=== PATIENT | male | born 1950 | race Caucasian/White ===

== ENCOUNTER 2016-12-05 15:01 | Inpatient (IN) ==
[2016-12-05] MEDS ORDERED: ONDANSETRON 4 MG/2 ML VIAL IV PRN (15:43)
[2016-12-05] MEDS ORDERED: GLUCAGON 1 MG VIAL IM PRN (15:43)
[2016-12-05] MEDS ORDERED: DEXTROSE 50% 25 GM/50 ML VIAL IV PRN (15:43)
[2016-12-05 17:00] LABS: Basophils % 0.2 % (0.0-0.8); Eosinophils % 0.1 % (0.00-10.9); Hematocrit 32.2 VOL% (42.0-52.0); Hemoglobin 10.9 GM/DL (14.0-18.0); Immature Granulocytes % 0.6 %; Immature Granulocytes Absolute 0.08 #; Lymphocytes # 0.7 10*3/uL (1.4-4.0); Lymphocytes % 5.3 % (21.2-54.2); Mean Corpuscular HGB Conc 33.9 GM/DL (32-36); Mean Corpuscular Hemoglobin 33 PG (27-34); Mean Platelet Volume 12.1 FL (9.6-12.0); Monocytes # 0.4 10*3/uL (0.11-0.8); Monocytes % 2.8 % (1.7-12.7); Neutrophils # 11.8 10*3/uL (1.4-7.4); Platelet Count 237 T/CUMM (130-400); Red Blood Count 3.32 MC/CUMM (3.8-5.5); Red Cell Distribution Width 14.3 % (9.3-17.3)
[2016-12-05 17:26] LABS: Calcium 8.4 MG/DL (8.5-10.1); Osmolality,Calculated 297.4 MOS/KG (273-304); Potassium 4.4 MMOL/L (3.5-5.1)
[2016-12-05] MEDS ORDERED: traMADol 50 MG TABLET PO PRN (17:30)
[2016-12-05] MEDS: ENOXAPARIN 30 MG/0.3 ML SYRINGE SUBCUT SCH (19:07)
[2016-12-05] MEDS: SODIUM CHLORIDE 0.9% 1,000 ML IV SCH (19:07)
[2016-12-05] MEDS: CLINDAMYCIN INJ 300 MG in PREMIX 1 EACH IV SCH (19:08)
[2016-12-05] MEDS: CEFTAROLINE 200 MG in SODIUM CHLORIDE 0.9% 100 ML IV SCH (21:46)
[2016-12-05] MEDS: DOCUSATE SODIUM 100 MG CAPSULE PO SCH (21:46)
[2016-12-06] MEDS: CLINDAMYCIN INJ 300 MG in PREMIX 1 EACH IV SCH ×3 (03:14→19:19)
[2016-12-06 05:58] LABS: Basophils % 0.2 % (0.0-0.8); Hematocrit 30.2 VOL% (42.0-52.0); Immature Granulocytes % 0.7 %; Immature Granulocytes Absolute 0.07 #; Lymphocytes # 1.3 10*3/uL (1.4-4.0); Lymphocytes % 13.5 % (21.2-54.2); Mean Corpuscular HGB Conc 33.1 GM/DL (32-36); Mean Corpuscular Hemoglobin 32 PG (27-34); Mean Corpuscular Volume 97.7 FL (87-102); Monocytes # 0.4 10*3/uL (0.11-0.8); Monocytes % 4.7 % (1.7-12.7); Neutrophils # 7.6 10*3/uL (1.4-7.4); Neutrophils % 80.9 % (38.7-73.9); Platelet Count 188 T/CUMM (130-400); Red Blood Count 3.09 MC/CUMM (3.8-5.5); Red Cell Distribution Width 14.2 % (9.3-17.3); White Blood Count 9.5 T/CUMM (4-12)
[2016-12-06] MEDS: CEFTAROLINE 200 MG in SODIUM CHLORIDE 0.9% 100 ML IV SCH ×2 (06:00→21:11)
[2016-12-06 06:28] LABS: Calcium 8.2 MG/DL (8.5-10.1); Osmolality,Calculated 293.4 MOS/KG (273-304); Potassium 3.8 MMOL/L (3.5-5.1)
[2016-12-06] MEDS ORDERED: NON-FORMULARY MEDICATION (Pravastatin Sodium [Pravachol] 80 MG) PO SCH (09:00)
[2016-12-06] MEDS: DILTIAZEM CD 180 MG CAPSULE PO SCH (10:45)
[2016-12-06] MEDS: DUTASTERIDE 0.5 MG CAPSULE PO SCH (10:45)
[2016-12-06] MEDS: PRAVASTATIN 40 MG TABLET PO SCH (10:47)
[2016-12-06] MEDS: PANTOPRAZOLE 40 MG TABLET PO SCH (10:47)
[2016-12-06] MEDS: DOCUSATE SODIUM 100 MG CAPSULE PO SCH ×2 (10:47→21:11)
[2016-12-06] MEDS: LORATADINE 10 MG TABLET PO SCH (10:47)
[2016-12-06] MEDS: ALLOPURINOL 100 MG TABLET PO SCH (10:49)
[2016-12-06] MEDS: ENOXAPARIN 30 MG/0.3 ML SYRINGE SUBCUT SCH (21:11)
[2016-12-07] MEDS: CLINDAMYCIN INJ 300 MG in PREMIX 1 EACH IV SCH (02:55)
[2016-12-07] MEDS: SODIUM CHLORIDE 0.9% 1,000 ML IV SCH ×4 (05:17→22:18)
[2016-12-07 06:21] LABS: White Blood Count 7.8 T/CUMM (4-12)
[2016-12-07 06:22] LABS: Basophils % 0.5 % (0.0-0.8); Eosinophils # 0.1 10*3/uL (0.0-0.87); Eosinophils % 0.9 % (0.00-10.9); Hematocrit 30.7 VOL% (42.0-52.0); Hemoglobin 10.3 GM/DL (14.0-18.0); Immature Granulocytes % 0.6 %; Immature Granulocytes Absolute 0.05 #; Lymphocytes # 1.3 10*3/uL (1.4-4.0); Lymphocytes % 16.6 % (21.2-54.2); Mean Corpuscular HGB Conc 33.6 GM/DL (32-36); Mean Corpuscular Hemoglobin 33 PG (27-34); Mean Corpuscular Volume 97.8 FL (87-102); Mean Platelet Volume 12.6 FL (9.6-12.0); Monocytes # 0.4 10*3/uL (0.11-0.8); Monocytes % 4.6 % (1.7-12.7); Neutrophils % 76.8 % (38.7-73.9); Platelet Count 190 T/CUMM (130-400); Red Blood Count 3.14 MC/CUMM (3.8-5.5); Red Cell Distribution Width 14.2 % (9.3-17.3)
[2016-12-07 06:49] LABS: Osmolality,Calculated 292.4 MOS/KG (273-304)
[2016-12-07 07:13] LABS: Eosinophils 2 % (0-10); Hypochromasia 1+; Lymphocytes 19 % (20-55); Platelet Estimate Adequate; Segmented Neutrophils 74 % (50-85); Total Cells Counted 100
[2016-12-07] MEDS: DUTASTERIDE 0.5 MG CAPSULE PO SCH (08:21)
[2016-12-07] MEDS: DILTIAZEM CD 180 MG CAPSULE PO SCH (08:22)
[2016-12-07] MEDS: PRAVASTATIN 40 MG TABLET PO SCH (08:23)
[2016-12-07] MEDS: DOCUSATE SODIUM 100 MG CAPSULE PO SCH ×2 (08:23→20:23)
[2016-12-07] MEDS: LORATADINE 10 MG TABLET PO SCH (08:23)
[2016-12-07] MEDS: PANTOPRAZOLE 40 MG TABLET PO SCH (08:24)
[2016-12-07] MEDS: ALLOPURINOL 100 MG TABLET PO SCH (08:24)
[2016-12-07] MEDS: CEFTAROLINE 200 MG in SODIUM CHLORIDE 0.9% 100 ML IV SCH ×2 (08:24→20:23)
[2016-12-07] MEDS: SODIUM CHLORIDE 0.9% IV SCH ×2 (13:14→18:38)
[2016-12-07] MEDS: CLINDAMYCIN IV SCH ×2 (13:14→18:38)
[2016-12-07] MEDS: ENOXAPARIN 30 MG/0.3 ML SYRINGE SUBCUT SCH (20:23)
[2016-12-07] MEDS: ACETAMINOPHEN 325 MG TABLET PO PRN (20:23)
[2016-12-08] MEDS: CLINDAMYCIN IV SCH ×3 (01:32→17:12)
[2016-12-08] MEDS: SODIUM CHLORIDE 0.9% IV SCH ×3 (01:32→17:12)
[2016-12-08] MEDS: DILTIAZEM CD 180 MG CAPSULE PO SCH (08:32)
[2016-12-08] MEDS: DUTASTERIDE 0.5 MG CAPSULE PO SCH (08:32)
[2016-12-08] MEDS: LORATADINE 10 MG TABLET PO SCH (08:33)
[2016-12-08] MEDS: DOCUSATE SODIUM 100 MG CAPSULE PO SCH ×2 (08:33→20:16)
[2016-12-08] MEDS: PRAVASTATIN 40 MG TABLET PO SCH (08:34)
[2016-12-08] MEDS: CEFTAROLINE 200 MG in SODIUM CHLORIDE 0.9% 100 ML IV SCH ×2 (08:34→20:16)
[2016-12-08] MEDS: PANTOPRAZOLE 40 MG TABLET PO SCH (08:34)
[2016-12-08] MEDS: ALLOPURINOL 100 MG TABLET PO SCH (08:35)
[2016-12-08] MEDS: BENZONATATE 100 MG CAPSULE PO PRN ×2 (10:20→19:20)
[2016-12-08] MEDS: SODIUM CHLORIDE 0.9% 1,000 ML IV SCH ×2 (15:33)
[2016-12-08] MEDS: ENOXAPARIN 30 MG/0.3 ML SYRINGE SUBCUT SCH (20:16)
[2016-12-08] MEDS: ACETAMINOPHEN 325 MG TABLET PO PRN (20:16)
[2016-12-09] MEDS: guaiFENesin/CODEINE 5 ML LIQUID PO PRN (00:19)
[2016-12-09] MEDS: SODIUM CHLORIDE 0.9% IV SCH ×3 (00:33→17:36)
[2016-12-09] MEDS: CLINDAMYCIN IV SCH ×3 (00:33→17:36)
[2016-12-09] MEDS: DILTIAZEM CD 180 MG CAPSULE PO SCH (08:35)
[2016-12-09] MEDS: DUTASTERIDE 0.5 MG CAPSULE PO SCH (08:35)
[2016-12-09] MEDS: DOCUSATE SODIUM 100 MG CAPSULE PO SCH ×2 (08:36→20:30)
[2016-12-09] MEDS: PANTOPRAZOLE 40 MG TABLET PO SCH (08:36)
[2016-12-09] MEDS: PRAVASTATIN 40 MG TABLET PO SCH (08:36)
[2016-12-09] MEDS: LORATADINE 10 MG TABLET PO SCH (08:36)
[2016-12-09] MEDS: CEFTAROLINE 200 MG in SODIUM CHLORIDE 0.9% 100 ML IV SCH ×2 (08:37→20:31)
[2016-12-09] MEDS: ALLOPURINOL 100 MG TABLET PO SCH (08:37)
[2016-12-09] MEDS: BENZONATATE 100 MG CAPSULE PO PRN ×2 (09:56→20:31)
[2016-12-09] MEDS: ACETAMINOPHEN 325 MG TABLET PO PRN (20:30)
[2016-12-09] MEDS: ENOXAPARIN 30 MG/0.3 ML SYRINGE SUBCUT SCH (20:31)
[2016-12-09] MEDS: SODIUM CHLORIDE 0.9% 1,000 ML IV SCH (22:33)
[2016-12-10] MEDS: SODIUM CHLORIDE 0.9% IV SCH (01:00)
[2016-12-10] MEDS: CLINDAMYCIN IV SCH (01:00)
[2016-12-10 08:08] LABS: Calcium 7.3 MG/DL (8.5-10.1); Osmolality,Calculated 293.1 MOS/KG (273-304); Potassium 4.5 MMOL/L (3.5-5.1)
[2016-12-10] MEDS ORDERED: FUROSEMIDE 40 MG/4 ML VIAL IV ONE (09:00)
[2016-12-10 09:01] LABS: Basophils % 1.3 % (0.0-0.8); Eosinophils # 0.1 10*3/uL (0.0-0.87); Eosinophils % 4.5 % (0.00-10.9); Hematocrit 30.1 VOL% (42.0-52.0); Hemoglobin 10.3 GM/DL (14.0-18.0); Immature Granulocytes % 2.7 %; Immature Granulocytes Absolute 0.06 #; Lymphocytes # 0.9 10*3/uL (1.4-4.0); Lymphocytes % 39.9 % (21.2-54.2); Mean Corpuscular HGB Conc 34.2 GM/DL (32-36); Mean Corpuscular Hemoglobin 33 PG (27-34); Mean Corpuscular Volume 96.2 FL (87-102); Mean Platelet Volume 12.7 FL (9.6-12.0); Monocytes # 0.3 10*3/uL (0.11-0.8); Neutrophils # 0.9 10*3/uL (1.4-7.4); Neutrophils % 38.6 % (38.7-73.9); Red Blood Count 3.13 MC/CUMM (3.8-5.5); Red Cell Distribution Width 14.2 % (9.3-17.3); White Blood Count 2.2 T/CUMM (4-12)
[2016-12-10 09:03] LABS: Platelet Count 105 T/CUMM (130-400)
[2016-12-10 09:19] LABS: Eosinophils 3 % (0-10); Hypochromasia 1+; Lymphocytes 32 % (20-55); Segmented Neutrophils 51 % (50-85); Total Cells Counted 100
[2016-12-10 09:20] LABS: Platelet Estimate Decreased
[2016-12-10 09:44] LABS: Eosinophils # 0.1 10*3/uL (0.0-0.87); Hematocrit 31.7 VOL% (42.0-52.0); Hemoglobin 10.4 GM/DL (14.0-18.0); Immature Granulocytes Absolute 0.02 #; Lymphocytes # 0.8 10*3/uL (1.4-4.0); Lymphocytes % 41.2 % (21.2-54.2); Mean Corpuscular HGB Conc 32.8 GM/DL (32-36); Mean Corpuscular Hemoglobin 32 PG (27-34); Mean Corpuscular Volume 96.4 FL (87-102); Mean Platelet Volume 11.8 FL (9.6-12.0); Monocytes # 0.2 10*3/uL (0.11-0.8); Monocytes % 11.6 % (1.7-12.7); Neutrophils # 0.8 10*3/uL (1.4-7.4); Neutrophils % 40.2 % (38.7-73.9); Platelet Count 117 T/CUMM (130-400); Red Blood Count 3.29 MC/CUMM (3.8-5.5); Red Cell Distribution Width 14.3 % (9.3-17.3)
[2016-12-10 10:14] LABS: Albumin 2.1 G/DL (3.4-5.0); Calcium 7.3 MG/DL (8.5-10.1); Osmolality,Calculated 290.4 MOS/KG (273-304); Phosphorous 5.1 MG/DL (2.5-4.9); Potassium 4.4 MMOL/L (3.5-5.1)
[2016-12-10] MEDS: NYSTATIN 500,000 UNIT/5 ML UDCUP SWISH/SWAL SCH ×2 (10:48→20:37)
[2016-12-10] MEDS: PRAVASTATIN 40 MG TABLET PO SCH (10:52)
[2016-12-10] MEDS: DUTASTERIDE 0.5 MG CAPSULE PO SCH (10:52)
[2016-12-10] MEDS: ALLOPURINOL 100 MG TABLET PO SCH (10:53)
[2016-12-10] MEDS: BENZONATATE 100 MG CAPSULE PO PRN ×2 (10:53→20:44)
[2016-12-10] MEDS: LORATADINE 10 MG TABLET PO SCH (10:53)
[2016-12-10] MEDS: DOCUSATE SODIUM 100 MG CAPSULE PO SCH ×2 (10:53→20:37)
[2016-12-10] MEDS: PANTOPRAZOLE 40 MG TABLET PO SCH (10:53)
[2016-12-10] MEDS: DILTIAZEM CD 180 MG CAPSULE PO SCH (10:54)
[2016-12-10] MEDS: DAPTOmycin 500 MG in SODIUM CHLORIDE 0.9% 50 ML IV SCH (14:26)
[2016-12-10] MEDS: ENOXAPARIN 30 MG/0.3 ML SYRINGE SUBCUT SCH (20:37)
[2016-12-10] MEDS: SODIUM CHLORIDE 0.9% 1,000 ML IV SCH (21:17)
[2016-12-11] MEDS: NYSTATIN 500,000 UNIT/5 ML UDCUP SWISH/SWAL SCH ×5 (01:31→22:57)
[2016-12-11] MEDS: CLINDAMYCIN IV SCH (01:32)
[2016-12-11] MEDS: SODIUM CHLORIDE 0.9% IV SCH (01:32)
[2016-12-11 06:05] LABS: Basophils % 0.3 % (0.0-0.8); Eosinophils # 0.2 10*3/uL (0.0-0.87); Eosinophils % 5.1 % (0.00-10.9); Hematocrit 28.9 VOL% (42.0-52.0); Hemoglobin 9.7 GM/DL (14.0-18.0); Immature Granulocytes Absolute 0.03 #; Lymphocytes # 1.2 10*3/uL (1.4-4.0); Lymphocytes % 39.3 % (21.2-54.2); Mean Corpuscular HGB Conc 33.6 GM/DL (32-36); Mean Corpuscular Hemoglobin 32 PG (27-34); Mean Corpuscular Volume 94.8 FL (87-102); Mean Platelet Volume 12.5 FL (9.6-12.0); Monocytes # 0.4 10*3/uL (0.11-0.8); Monocytes % 11.9 % (1.7-12.7); Neutrophils # 1.3 10*3/uL (1.4-7.4); Neutrophils % 42.4 % (38.7-73.9); Platelet Count 89 T/CUMM (130-400); Red Blood Count 3.05 MC/CUMM (3.8-5.5); Red Cell Distribution Width 14.4 % (9.3-17.3)
[2016-12-11 06:35] LABS: Albumin 1.9 G/DL (3.4-5.0); Calcium 7.3 MG/DL (8.5-10.1); Osmolality,Calculated 297.3 MOS/KG (273-304); Phosphorous 4.8 MG/DL (2.5-4.9); Potassium 4.2 MMOL/L (3.5-5.1)
[2016-12-11 06:36] LABS: Eosinophils 4 % (0-10); Hypochromasia 1+; Lymphocytes 39 % (20-55); Ovalocytes Slight; Platelet Estimate Decreased; Segmented Neutrophils 42 % (50-85); Total Cells Counted 100
[2016-12-11 06:37] LABS: Giant Platelets Few
[2016-12-11] MEDS ORDERED: INSULIN LISPRO 100 UNIT/ML SUBCUT ONE (10:45)
[2016-12-11] MEDS: BENZONATATE 100 MG CAPSULE PO PRN ×2 (11:22→21:06)
[2016-12-11] MEDS: DOCUSATE SODIUM 100 MG CAPSULE PO SCH ×2 (11:22→21:04)
[2016-12-11] MEDS: DUTASTERIDE 0.5 MG CAPSULE PO SCH (11:23)
[2016-12-11] MEDS: SODIUM BICARBONATE 650 MG TABLET PO SCH (11:23)
[2016-12-11] MEDS: LORATADINE 10 MG TABLET PO SCH (11:23)
[2016-12-11] MEDS: PANTOPRAZOLE 40 MG TABLET PO SCH (11:23)
[2016-12-11] MEDS: ALLOPURINOL 100 MG TABLET PO SCH (11:25)
[2016-12-11] MEDS ORDERED: INSULIN LISPRO 100 UNIT/ML SUBCUT SCH (11:28)
[2016-12-11] MEDS: DILTIAZEM CD 240 MG CAPSULE PO SCH (11:28)
[2016-12-11] MEDS: guaiFENesin/CODEINE 5 ML LIQUID PO PRN (15:48)
[2016-12-11] MEDS: ENOXAPARIN 30 MG/0.3 ML SYRINGE SUBCUT SCH (21:05)
[2016-12-11] MEDS: ACETAMINOPHEN 325 MG TABLET PO PRN (21:05)
[2016-12-12 06:18] LABS: Basophils % 0.3 % (0.0-0.8); Eosinophils # 0.2 10*3/uL (0.0-0.87); Eosinophils % 4.9 % (0.00-10.9); Hematocrit 27.5 VOL% (42.0-52.0); Hemoglobin 9.1 GM/DL (14.0-18.0); Immature Granulocytes % 0.8 %; Immature Granulocytes Absolute 0.03 #; Lymphocytes # 1.6 10*3/uL (1.4-4.0); Lymphocytes % 39.6 % (21.2-54.2); Mean Corpuscular HGB Conc 33.1 GM/DL (32-36); Mean Corpuscular Hemoglobin 31 PG (27-34); Mean Corpuscular Volume 94.5 FL (87-102); Mean Platelet Volume 12.8 FL (9.6-12.0); Monocytes # 0.5 10*3/uL (0.11-0.8); Monocytes % 12.3 % (1.7-12.7); Neutrophils # 1.7 10*3/uL (1.4-7.4); Neutrophils % 42.1 % (38.7-73.9); Platelet Count 88 T/CUMM (130-400); Red Blood Count 2.91 MC/CUMM (3.8-5.5); Red Cell Distribution Width 14.1 % (9.3-17.3); White Blood Count 3.9 T/CUMM (4-12)
[2016-12-12 06:40] LABS: Lymphocytes 27 % (20-55); Segmented Neutrophils 60 % (50-85); Total Cells Counted 100
[2016-12-12 06:41] LABS: Hypochromasia 1+; Microcytosis 1+; Platelet Estimate Decreased
[2016-12-12 06:47] LABS: Albumin 1.8 G/DL (3.4-5.0); Calcium 7.3 MG/DL (8.5-10.1); Osmolality,Calculated 295.3 MOS/KG (273-304); Phosphorous 4.6 MG/DL (2.5-4.9); Potassium 4.3 MMOL/L (3.5-5.1)
[2016-12-12] MEDS: DUTASTERIDE 0.5 MG CAPSULE PO SCH (08:54)
[2016-12-12] MEDS: DILTIAZEM CD 240 MG CAPSULE PO SCH (08:54)
[2016-12-12] MEDS: DAPTOmycin 500 MG in SODIUM CHLORIDE 0.9% 50 ML IV SCH (08:56)
[2016-12-12] MEDS: LORATADINE 10 MG TABLET PO SCH (08:56)
[2016-12-12] MEDS: DOCUSATE SODIUM 100 MG CAPSULE PO SCH ×2 (08:56→21:03)
[2016-12-12] MEDS: NYSTATIN 500,000 UNIT/5 ML UDCUP SWISH/SWAL SCH ×4 (08:59→21:03)
[2016-12-12] MEDS: SODIUM BICARBONATE 650 MG TABLET PO SCH ×2 (09:01→21:03)
[2016-12-12] MEDS: BENZONATATE 100 MG CAPSULE PO PRN ×2 (09:01→21:01)
[2016-12-12] MEDS: PANTOPRAZOLE 40 MG TABLET PO SCH (09:01)
[2016-12-12] MEDS: ALLOPURINOL 100 MG TABLET PO SCH (09:01)
[2016-12-12] MEDS: ACETAMINOPHEN 325 MG TABLET PO PRN (21:01)
[2016-12-12] MEDS: ENOXAPARIN 30 MG/0.3 ML SYRINGE SUBCUT SCH (21:03)
[2016-12-13 06:22] LABS: Basophils % 0.2 % (0.0-0.8); Eosinophils # 0.2 10*3/uL (0.0-0.87); Eosinophils % 3.7 % (0.00-10.9); Hemoglobin 9.5 GM/DL (14.0-18.0); Immature Granulocytes % 0.7 %; Immature Granulocytes Absolute 0.03 #; Lymphocytes # 1.6 10*3/uL (1.4-4.0); Lymphocytes % 35.3 % (21.2-54.2); Mean Corpuscular HGB Conc 33.9 GM/DL (32-36); Mean Corpuscular Hemoglobin 32 PG (27-34); Mean Platelet Volume 11.9 FL (9.6-12.0); Monocytes # 0.5 10*3/uL (0.11-0.8); Monocytes % 11.6 % (1.7-12.7); Neutrophils # 2.2 10*3/uL (1.4-7.4); Neutrophils % 48.5 % (38.7-73.9); Platelet Count 109 T/CUMM (130-400); Red Blood Count 2.98 MC/CUMM (3.8-5.5); Red Cell Distribution Width 14.3 % (9.3-17.3); White Blood Count 4.6 T/CUMM (4-12)
[2016-12-13 06:52] LABS: Albumin 1.9 G/DL (3.4-5.0); Calcium 7.1 MG/DL (8.5-10.1); Osmolality,Calculated 293.3 MOS/KG (273-304); Phosphorous 4.5 MG/DL (2.5-4.9); Potassium 4.3 MMOL/L (3.5-5.1)
[2016-12-13 07:01] LABS: Eosinophils 4 % (0-10); Lymphocytes 24 % (20-55); Segmented Neutrophils 62 % (50-85); Total Cells Counted 100
[2016-12-13 07:02] LABS: Giant Platelets Few; Hypochromasia 1+; Microcytosis 1+; Ovalocytes Slight; Platelet Estimate Decreased
[2016-12-13] MEDS: DUTASTERIDE 0.5 MG CAPSULE PO SCH (08:50)
[2016-12-13] MEDS: LORATADINE 10 MG TABLET PO SCH (08:51)
[2016-12-13] MEDS: DOCUSATE SODIUM 100 MG CAPSULE PO SCH ×2 (08:51→20:33)
[2016-12-13] MEDS: NYSTATIN 500,000 UNIT/5 ML UDCUP SWISH/SWAL SCH ×4 (08:51→20:33)
[2016-12-13] MEDS: PANTOPRAZOLE 40 MG TABLET PO SCH (08:53)
[2016-12-13] MEDS: SODIUM BICARBONATE 650 MG TABLET PO SCH ×2 (08:53→20:38)
[2016-12-13] MEDS: ALLOPURINOL 100 MG TABLET PO SCH (08:53)
[2016-12-13] MEDS: BENZONATATE 100 MG CAPSULE PO PRN ×2 (08:54→20:34)
[2016-12-13] MEDS: DILTIAZEM CD 240 MG CAPSULE PO SCH (09:32)
[2016-12-13] MEDS: FUROSEMIDE 80 MG TABLET PO SCH ×2 (09:55→15:48)
[2016-12-13] MEDS ORDERED: ALLOPURINOL 100 MG TABLET PO ONE (10:00)
[2016-12-13] MEDS ORDERED: amLODIPine 5 MG TABLET PO SCH (10:00)
[2016-12-13] MEDS ORDERED: FUROSEMIDE 80 MG TABLET PO SCH (16:00)
[2016-12-13] MEDS: ACETAMINOPHEN 325 MG TABLET PO PRN (20:34)
[2016-12-13] MEDS: ENOXAPARIN 30 MG/0.3 ML SYRINGE SUBCUT SCH (20:34)
[2016-12-14 05:08] LABS: % Iron Saturation 26.4 % (18-50)
[2016-12-14] MEDS: FUROSEMIDE 80 MG TABLET PO SCH ×2 (07:44→14:15)
[2016-12-14] MEDS ORDERED: CARVEDILOL 6.25 MG TABLET PO SCH (09:00)
[2016-12-14] MEDS ORDERED: ALLOPURINOL 300 MG TABLET PO SCH (09:00)
[2016-12-14] MEDS ORDERED: amLODIPine 5 MG TABLET PO SCH (09:00)
[2016-12-14] MEDS: NYSTATIN 500,000 UNIT/5 ML UDCUP SWISH/SWAL SCH ×2 (10:31→14:14)
[2016-12-14] MEDS: DOCUSATE SODIUM 100 MG CAPSULE PO SCH (10:33)
[2016-12-14] MEDS: LORATADINE 10 MG TABLET PO SCH (10:33)
[2016-12-14] MEDS: PANTOPRAZOLE 40 MG TABLET PO SCH (10:33)
[2016-12-14] MEDS: DUTASTERIDE 0.5 MG CAPSULE PO SCH (10:33)
[2016-12-14] MEDS: DAPTOmycin 500 MG in SODIUM CHLORIDE 0.9% 50 ML IV SCH (10:51)
[2016-12-14] MEDS: SODIUM BICARBONATE 650 MG TABLET PO SCH (13:44)
[2016-12-14 16:31] VITALS: BP 176/81
== END 2016-12-14 16:53 | disposition home or self-care (01) | DRG 603 ==
LOC: N.2E 15:54
PROVIDERS: ADMIT Internal Medicine; ATTEND Internal Medicine

== ENCOUNTER 2017-03-25 15:32 | Inpatient (IN) ==
[2017-03-25] MEDS ORDERED: ONDANSETRON 4 MG/2 ML VIAL IV PRN (15:39)
[2017-03-25] MEDS ORDERED: ACETAMINOPHEN 325 MG TABLET PO PRN (15:39)
[2017-03-25] MEDS: SODIUM CHLORIDE 0.9% 1,000 ML IV SCH (17:08)
[2017-03-25] MEDS: metroNIDAZOLE INJ 500 MG in PREMIX 1 EACH IV SCH (17:08)
[2017-03-25] MEDS ORDERED: traMADol 50 MG TABLET PO PRN (17:15)
[2017-03-25] MEDS ORDERED: LORATADINE 10 MG TABLET PO PRN (17:15)
[2017-03-25] MEDS ORDERED: INSULIN LISPRO 100 UNIT/ML SUBCUT SCH (17:30)
[2017-03-25] MEDS: DOCUSATE SODIUM 100 MG CAPSULE PO SCH (20:38)
[2017-03-25] MEDS ORDERED: PIPERACILLIN/TAZOBACTAM 2,250 MG in SODIUM CHLORIDE 0.9% 100 ML IV SCH (21:00)
[2017-03-25] MEDS: CARVEDILOL 6.25 MG TABLET PO SCH (21:05)
[2017-03-26] MEDS: metroNIDAZOLE INJ 500 MG in PREMIX 1 EACH IV SCH ×3 (01:08→16:39)
[2017-03-26] MEDS: SODIUM CHLORIDE 0.9% 1,000 ML IV SCH ×2 (02:00→17:55)
[2017-03-26 06:41] LABS: Basophils % 0.1 % (0.0-0.8); Eosinophils # 0.1 10*3/uL (0.0-0.87); Eosinophils % 0.8 % (0.00-10.9); Hematocrit 22.2 VOL% (42.0-52.0); Hemoglobin 7.4 GM/DL (14.0-18.0); Immature Granulocytes % 0.7 %; Immature Granulocytes Absolute 0.11 #; Lymphocytes # 0.8 10*3/uL (1.4-4.0); Lymphocytes % 4.9 % (21.2-54.2); Mean Corpuscular HGB Conc 33.3 GM/DL (32-36); Mean Corpuscular Hemoglobin 30 PG (27-34); Mean Platelet Volume 11.9 FL (9.6-12.0); Monocytes % 5.9 % (1.7-12.7); Neutrophils # 14.8 10*3/uL (1.4-7.4); Neutrophils % 87.6 % (38.7-73.9); Platelet Count 175 T/CUMM (130-400); Red Blood Count 2.44 MC/CUMM (3.8-5.5); Red Cell Distribution Width 13.8 % (9.3-17.3); White Blood Count 16.9 T/CUMM (4-12)
[2017-03-26 07:03] LABS: Hypochromasia 1+
[2017-03-26 07:05] LABS: Osmolality,Calculated 299.1 MOS/KG (273-304); Potassium 3.6 MMOL/L (3.5-5.1)
[2017-03-26] MEDS ORDERED: PANTOPRAZOLE 40 MG TABLET PO SCH (09:00)
[2017-03-26] MEDS: ASCORBIC ACID 500 MG TABLET PO SCH (09:01)
[2017-03-26] MEDS: ALLOPURINOL 300 MG TABLET PO SCH (09:01)
[2017-03-26] MEDS: CARVEDILOL 6.25 MG TABLET PO SCH ×2 (09:02→20:41)
[2017-03-26] MEDS: DUTASTERIDE 0.5 MG CAPSULE PO SCH (09:02)
[2017-03-26] MEDS: DOCUSATE SODIUM 100 MG CAPSULE PO SCH ×2 (09:02→20:41)
[2017-03-26] MEDS: ASPIRIN CHEW 81 MG TABLET PO SCH (09:02)
[2017-03-26] MEDS: PANTOPRAZOLE 40 MG TABLET PO SCH (09:02)
[2017-03-26] MEDS: amLODIPine 10 MG TABLET PO SCH (09:02)
[2017-03-26 09:22] LABS: % Iron Saturation 7.3 % (18-50); Ferritin 811.3 ng/ml (26-388)
[2017-03-26 09:34] LABS: Folate 8.2 NG/ML (5.4-24.0)
[2017-03-26] MEDS: PIPERACILLIN/TAZOBACTAM 3,375 MG in SODIUM CHLORIDE 0.9% 100 ML IV SCH ×2 (10:02→20:45)
[2017-03-27] MEDS: metroNIDAZOLE INJ 500 MG in PREMIX 1 EACH IV SCH ×3 (01:38→16:40)
[2017-03-27] MEDS: SODIUM CHLORIDE 0.9% 1,000 ML IV SCH ×2 (01:39→19:26)
[2017-03-27 06:33] LABS: Basophils % 0.3 % (0.0-0.8); Eosinophils # 0.3 10*3/uL (0.0-0.87); Eosinophils % 2.3 % (0.00-10.9); Hematocrit 20.8 VOL% (42.0-52.0); Hemoglobin 6.8 GM/DL (14.0-18.0); Immature Granulocytes % 0.7 %; Lymphocytes # 1.1 10*3/uL (1.4-4.0); Lymphocytes % 7.9 % (21.2-54.2); Mean Corpuscular HGB Conc 32.7 GM/DL (32-36); Mean Corpuscular Hemoglobin 30 PG (27-34); Mean Platelet Volume 12.3 FL (9.6-12.0); Monocytes # 0.8 10*3/uL (0.11-0.8); Monocytes % 5.9 % (1.7-12.7); Neutrophils # 11.8 10*3/uL (1.4-7.4); Neutrophils % 82.9 % (38.7-73.9); Platelet Count 179 T/CUMM (130-400); Red Blood Count 2.26 MC/CUMM (3.8-5.5); Red Cell Distribution Width 13.9 % (9.3-17.3); White Blood Count 14.2 T/CUMM (4-12)
[2017-03-27 07:06] LABS: Calcium 7.6 MG/DL (8.5-10.1); Osmolality,Calculated 299.5 MOS/KG (273-304); Potassium 3.5 MMOL/L (3.5-5.1)
[2017-03-27] MEDS ORDERED: SODIUM CHLORIDE 0.9% 1,000 ML IV PRN (08:31)
[2017-03-27] MEDS: DUTASTERIDE 0.5 MG CAPSULE PO SCH (11:53)
[2017-03-27] MEDS: ALLOPURINOL 300 MG TABLET PO SCH (11:53)
[2017-03-27] MEDS: amLODIPine 10 MG TABLET PO SCH (11:53)
[2017-03-27] MEDS: ASCORBIC ACID 500 MG TABLET PO SCH (11:53)
[2017-03-27] MEDS: PANTOPRAZOLE 40 MG TABLET PO SCH (11:54)
[2017-03-27] MEDS: ASPIRIN CHEW 81 MG TABLET PO SCH (11:54)
[2017-03-27] MEDS: DOCUSATE SODIUM 100 MG CAPSULE PO SCH ×2 (11:54→20:48)
[2017-03-27] MEDS: CARVEDILOL 6.25 MG TABLET PO SCH ×2 (11:54→20:47)
[2017-03-27] MEDS: PIPERACILLIN/TAZOBACTAM 3,375 MG in SODIUM CHLORIDE 0.9% 100 ML IV SCH ×2 (13:34→20:47)
[2017-03-27] MEDS ORDERED: FUROSEMIDE 40 MG/4 ML VIAL IV STA (17:35)
[2017-03-28] MEDS: metroNIDAZOLE INJ 500 MG in PREMIX 1 EACH IV SCH ×3 (00:57→17:56)
[2017-03-28 05:36] LABS: Basophils % 0.3 % (0.0-0.8); Eosinophils # 0.5 10*3/uL (0.0-0.87); Eosinophils % 4.1 % (0.00-10.9); Hematocrit 27.5 VOL% (42.0-52.0); Hemoglobin 9.3 GM/DL (14.0-18.0); Immature Granulocytes % 0.6 %; Immature Granulocytes Absolute 0.07 #; Lymphocytes % 8.5 % (21.2-54.2); Mean Corpuscular HGB Conc 33.8 GM/DL (32-36); Mean Corpuscular Hemoglobin 31 PG (27-34); Mean Corpuscular Volume 90.2 FL (87-102); Mean Platelet Volume 11.9 FL (9.6-12.0); Monocytes # 0.7 10*3/uL (0.11-0.8); Monocytes % 6.1 % (1.7-12.7); Neutrophils # 9.5 10*3/uL (1.4-7.4); Neutrophils % 80.4 % (38.7-73.9); Platelet Count 206 T/CUMM (130-400); Red Blood Count 3.05 MC/CUMM (3.8-5.5); Red Cell Distribution Width 13.9 % (9.3-17.3); White Blood Count 11.8 T/CUMM (4-12)
[2017-03-28 05:55] LABS: Calcium 7.7 MG/DL (8.5-10.1); Osmolality,Calculated 299.3 MOS/KG (273-304); Potassium 3.6 MMOL/L (3.5-5.1)
[2017-03-28] MEDS: PANTOPRAZOLE 40 MG TABLET PO SCH (11:04)
[2017-03-28] MEDS: DOCUSATE SODIUM 100 MG CAPSULE PO SCH ×2 (11:04→21:36)
[2017-03-28] MEDS: ASPIRIN CHEW 81 MG TABLET PO SCH (11:04)
[2017-03-28] MEDS: DUTASTERIDE 0.5 MG CAPSULE PO SCH (11:04)
[2017-03-28] MEDS: ASCORBIC ACID 500 MG TABLET PO SCH (11:04)
[2017-03-28] MEDS: LORATADINE 10 MG TABLET PO SCH (11:04)
[2017-03-28] MEDS: ALLOPURINOL 300 MG TABLET PO SCH (11:04)
[2017-03-28] MEDS: amLODIPine 10 MG TABLET PO SCH (11:04)
[2017-03-28] MEDS: CARVEDILOL 6.25 MG TABLET PO SCH ×2 (11:04→21:36)
[2017-03-28] MEDS: PIPERACILLIN/TAZOBACTAM 3,375 MG in SODIUM CHLORIDE 0.9% 100 ML IV SCH ×2 (11:05→21:35)
[2017-03-29] MEDS: metroNIDAZOLE INJ 500 MG in PREMIX 1 EACH IV SCH ×2 (01:43→09:15)
[2017-03-29 08:24] VITALS: BP 149/65
[2017-03-29] MEDS: DUTASTERIDE 0.5 MG CAPSULE PO SCH (09:17)
[2017-03-29] MEDS: ALLOPURINOL 300 MG TABLET PO SCH (09:17)
[2017-03-29] MEDS: LORATADINE 10 MG TABLET PO SCH (09:17)
[2017-03-29] MEDS: DOCUSATE SODIUM 100 MG CAPSULE PO SCH ×2 (09:17→09:22)
[2017-03-29] MEDS: CARVEDILOL 6.25 MG TABLET PO SCH (09:17)
[2017-03-29] MEDS: PANTOPRAZOLE 40 MG TABLET PO SCH (09:17)
[2017-03-29] MEDS: ASCORBIC ACID 500 MG TABLET PO SCH (09:17)
[2017-03-29] MEDS: amLODIPine 10 MG TABLET PO SCH (09:17)
[2017-03-29] MEDS: ASPIRIN CHEW 81 MG TABLET PO SCH (09:18)
[2017-03-29] MEDS: PIPERACILLIN/TAZOBACTAM 3,375 MG in SODIUM CHLORIDE 0.9% 100 ML IV SCH (10:19)
== END 2017-03-29 11:00 | disposition home or self-care (01) | DRG 392 ==
LOC: N.2E 16:13
PROVIDERS: ADMIT Internal Medicine; ATTEND Internal Medicine

== ENCOUNTER 2019-02-02 10:44 | Inpatient (IN) ==
[2019-02-02] MEDS ORDERED: DEXTROSE 50% 25 GM/50 ML VIAL IV PRN (10:49)
[2019-02-02] MEDS ORDERED: ACETAMINOPHEN 325 MG TABLET PO PRN (10:49)
[2019-02-02] MEDS ORDERED: GLUCAGON 1 MG VIAL IM PRN (10:49)
[2019-02-02] MEDS ORDERED: ONDANSETRON 4 MG/2 ML VIAL IV PRN (10:49)
[2019-02-02] MEDS ORDERED: FUROSEMIDE 40 MG/4 ML VIAL IV ONE (11:50)
[2019-02-02] MEDS ORDERED: ENOXAPARIN 30 MG/0.3 ML SYRINGE SUBCUT SCH (12:00)
[2019-02-02 12:43] LABS: Basophils % 0.5 % (0.0-0.8); Eosinophils # 0.2 10*3/uL (0.0-0.87); Eosinophils % 2.6 % (0.00-10.9); Hematocrit 33.7 VOL% (42.0-52.0); Hemoglobin 11.1 GM/DL (14.0-18.0); Immature Granulocytes % 0.3 %; Immature Granulocytes Absolute 0.03 #; Lymphocytes # 0.8 10*3/uL (1.4-4.0); Lymphocytes % 9.1 % (21.2-54.2); Mean Corpuscular HGB Conc 32.9 GM/DL (32-36); Mean Corpuscular Volume 90.6 FL (87-102); Mean Platelet Volume 10.9 FL (9.6-12.0); Monocytes % 11.4 % (1.7-12.7); Neutrophils % 76.1 % (38.7-73.9); Platelet Count 143 T/CUMM (130-400); Red Blood Count 3.72 MC/CUMM (3.8-5.5); Red Cell Distribution Width 17.9 % (9.3-17.3); White Blood Count 8.9 T/CUMM (4-12)
[2019-02-02 13:03] LABS: Albumin 3.2 G/DL (3.4-5.0); Bilirubin,Total 1.1 MG/DL (0.2-1.0); Calcium 8.7 MG/DL (8.5-10.1); Osmolality,Calculated 269.7 MOS/KG (273-304); Total Protein 6.9 G/DL (6.4-8.3)
[2019-02-02] MEDS ORDERED: traMADol 50 MG TABLET PO PRN (15:09)
[2019-02-02] MEDS ORDERED: MUPIROCIN 2% OINT 22 GM TUBE TOP PRN (16:37)
[2019-02-02] MEDS ORDERED: LIDOCAINE/PRILOCAINE CREAM 5 GM TUBE TOP PRN (16:37)
[2019-02-02] MEDS ORDERED: ONDANSETRON 4 MG TABLET PO PRN (16:37)
[2019-02-02] MEDS: INSULIN LISPRO 100 UNIT/ML SUBCUT SCH (18:09)
[2019-02-02] MEDS: DARBEPOETIN ALFA 100 MCG/ML VIAL SUBCUT SCH (18:09)
[2019-02-02] MEDS: amLODIPine 10 MG TABLET PO SCH (20:43)
[2019-02-02] MEDS: cloNIDine 0.1 MG TABLET PO SCH (20:43)
[2019-02-02] MEDS: CALCIUM ACETATE 667 MG CAPSULE PO SCH (20:43)
[2019-02-02] MEDS: carvediloL 25 MG TABLET PO SCH (20:43)
[2019-02-02] MEDS: DOCUSATE SODIUM 100 MG CAPSULE PO SCH (20:43)
[2019-02-02] MEDS ORDERED: ESOMEPRAZOLE 40 MG PO SCH (21:00)
[2019-02-02] MEDS ORDERED: FUROSEMIDE 20 MG/2 ML VIAL IV STA (21:16)
[2019-02-02] MEDS ORDERED: FUROSEMIDE 40 MG TABLET PO ONE (21:22)
[2019-02-03 06:18] LABS: Basophils # 0.1 10*3/uL (0.0-0.2); Basophils % 0.7 % (0.0-0.8); Eosinophils # 0.2 10*3/uL (0.0-0.87); Eosinophils % 3.2 % (0.00-10.9); Hematocrit 30.8 VOL% (42.0-52.0); Hemoglobin 10.2 GM/DL (14.0-18.0); Immature Granulocytes % 0.3 %; Immature Granulocytes Absolute 0.02 #; Lymphocytes # 0.8 10*3/uL (1.4-4.0); Mean Corpuscular HGB Conc 33.1 GM/DL (32-36); Mean Corpuscular Volume 90.3 FL (87-102); Mean Platelet Volume 10.3 FL (9.6-12.0); Monocytes % 12.1 % (1.7-12.7); Neutrophils % 72.7 % (38.7-73.9); Platelet Count 127 T/CUMM (130-400); Red Blood Count 3.41 MC/CUMM (3.8-5.5); Red Cell Distribution Width 17.8 % (9.3-17.3); White Blood Count 7.1 T/CUMM (4-12)
[2019-02-03 06:38] LABS: Calcium 8.4 MG/DL (8.5-10.1)
[2019-02-03] MEDS: DOCUSATE SODIUM 100 MG CAPSULE PO SCH ×2 (10:33→21:30)
[2019-02-03] MEDS: carvediloL 25 MG TABLET PO SCH ×2 (10:33→21:31)
[2019-02-03] MEDS: FUROSEMIDE 40 MG TABLET PO SCH (10:33)
[2019-02-03] MEDS: INSULIN LISPRO 100 UNIT/ML SUBCUT SCH ×2 (10:33→18:20)
[2019-02-03] MEDS: PANTOPRAZOLE 40 MG TABLET PO SCH (10:33)
[2019-02-03] MEDS: HEPARIN 5,000 UNIT/1 ML VIAL SUBCUT SCH ×2 (10:34→21:31)
[2019-02-03] MEDS: FENOFIBRATE 160 MG TABLET PO SCH (10:34)
[2019-02-03] MEDS: MULTIVITAMIN (CENTRUM) TABLET PO SCH (10:34)
[2019-02-03] MEDS: DUTASTERIDE 0.5 MG CAPSULE PO SCH (10:34)
[2019-02-03] MEDS: CALCIUM ACETATE 667 MG CAPSULE PO SCH ×4 (10:34→21:30)
[2019-02-03] MEDS: BENZONATATE 100 MG CAPSULE PO PRN ×2 (10:56→21:30)
[2019-02-03] MEDS: ALBUTEROL/IPRATROPIUM 3 ML NEB RESP TX SCH ×3 (11:21→18:35)
[2019-02-03] MEDS: cefTRIAXone 1,000 MG in SYRINGE 1 EACH IV SCH (18:52)
[2019-02-03] MEDS: AZITHROMYCIN INJ 500 MG in SODIUM CHLORIDE 0.9% 250 ML IV SCH (18:52)
[2019-02-03] MEDS ORDERED: DARBEPOETIN ALFA 200 MCG/ML VIAL SUBCUT SCH (19:00)
[2019-02-03] MEDS: DARBEPOETIN ALFA 100 MCG/ML VIAL SUBCUT SCH (19:08)
[2019-02-03] MEDS: amLODIPine 10 MG TABLET PO SCH (21:30)
[2019-02-03] MEDS: cloNIDine 0.1 MG TABLET PO SCH (21:31)
[2019-02-04] MEDS: BENZONATATE 100 MG CAPSULE PO PRN ×3 (04:19→20:33)
[2019-02-04 05:58] LABS: Calcium 8.8 MG/DL (8.5-10.1); Osmolality,Calculated 271.2 MOS/KG (273-304)
[2019-02-04] MEDS: INSULIN LISPRO 100 UNIT/ML SUBCUT SCH ×2 (07:33→16:27)
[2019-02-04] MEDS: ALBUTEROL/IPRATROPIUM 3 ML NEB RESP TX SCH ×4 (07:55→19:52)
[2019-02-04] MEDS: DUTASTERIDE 0.5 MG CAPSULE PO SCH (08:19)
[2019-02-04] MEDS: CALCIUM ACETATE 667 MG CAPSULE PO SCH ×3 (08:20→20:33)
[2019-02-04] MEDS: FENOFIBRATE 160 MG TABLET PO SCH (08:20)
[2019-02-04] MEDS: MULTIVITAMIN (CENTRUM) TABLET PO SCH (08:20)
[2019-02-04] MEDS: PANTOPRAZOLE 40 MG TABLET PO SCH (08:21)
[2019-02-04] MEDS: carvediloL 25 MG TABLET PO SCH ×2 (08:21→20:34)
[2019-02-04] MEDS: HEPARIN 5,000 UNIT/1 ML VIAL SUBCUT SCH ×2 (08:21→20:35)
[2019-02-04] MEDS: DOCUSATE SODIUM 100 MG CAPSULE PO SCH ×2 (08:21→20:33)
[2019-02-04] MEDS: FUROSEMIDE 40 MG TABLET PO SCH (08:21)
[2019-02-04] MEDS: cefTRIAXone 1,000 MG in SYRINGE 1 EACH IV SCH (14:11)
[2019-02-04] MEDS: AZITHROMYCIN INJ 500 MG in SODIUM CHLORIDE 0.9% 250 ML IV SCH (14:17)
[2019-02-04] MEDS: cloNIDine 0.1 MG TABLET PO SCH (20:34)
[2019-02-04] MEDS: amLODIPine 10 MG TABLET PO SCH (20:34)
[2019-02-05 06:56] LABS: Calcium 8.4 MG/DL (8.5-10.1)
[2019-02-05] MEDS: ALBUTEROL/IPRATROPIUM 3 ML NEB RESP TX SCH (07:16)
[2019-02-05 07:42] VITALS: BP 128/67
[2019-02-05] MEDS: AZITHROMYCIN INJ 500 MG in SODIUM CHLORIDE 0.9% 250 ML IV SCH (09:34)
[2019-02-05] MEDS: HEPARIN 5,000 UNIT/1 ML VIAL SUBCUT SCH (09:35)
[2019-02-05] MEDS: cefTRIAXone 1,000 MG in SYRINGE 1 EACH IV SCH (09:35)
[2019-02-05] MEDS: carvediloL 25 MG TABLET PO SCH (09:36)
[2019-02-05] MEDS: DUTASTERIDE 0.5 MG CAPSULE PO SCH (09:36)
[2019-02-05] MEDS: MULTIVITAMIN (CENTRUM) TABLET PO SCH (09:36)
[2019-02-05] MEDS: PANTOPRAZOLE 40 MG TABLET PO SCH (09:36)
[2019-02-05] MEDS: CALCIUM ACETATE 667 MG CAPSULE PO SCH (09:37)
[2019-02-05] MEDS: DOCUSATE SODIUM 100 MG CAPSULE PO SCH (09:37)
[2019-02-05] MEDS: BENZONATATE 100 MG CAPSULE PO PRN (09:37)
[2019-02-05] MEDS: FENOFIBRATE 160 MG TABLET PO SCH (09:37)
[2019-02-05] MEDS: FUROSEMIDE 40 MG TABLET PO SCH (09:37)
[2019-02-05] MEDS: INSULIN LISPRO 100 UNIT/ML SUBCUT SCH (09:38)
== END 2019-02-05 12:31 | disposition home or self-care (01) | DRG 189 ==
LOC: N.5E 11:45
PROVIDERS: ADMIT Internal Medicine; ATTEND Internal Medicine

== ENCOUNTER 2019-11-05 11:20 | Inpatient (IN) ==
[2019-11-05] MEDS ORDERED: GLUCAGON 1 MG VIAL IM PRN (11:41)
[2019-11-05] MEDS ORDERED: DEXTROSE 50% 25 GM/50 ML VIAL IV PRN (11:41)
[2019-11-05] MEDS ORDERED: ONDANSETRON 4 MG/2 ML VIAL IV PRN (11:41)
[2019-11-05] MEDS: cefTRIAXone 1,000 MG in SYRINGE 1 EACH IV SCH (12:27)
[2019-11-05] MEDS: PANTOPRAZOLE 40 MG TABLET PO SCH (12:27)
[2019-11-05] MEDS ORDERED: PNEUMOCOCCAL VACCINE (13 VALENT) 0.5 ML SYRINGE IM ONE (12:46)
[2019-11-05] MEDS: AZITHROMYCIN INJ 500 MG in SODIUM CHLORIDE 0.9% 250 ML IV SCH (15:14)
[2019-11-05 15:15] LABS: Ferritin 1524.5 ng/ml (26-388)
[2019-11-05] MEDS: DOCUSATE SODIUM 100 MG CAPSULE PO SCH (20:25)
[2019-11-05] MEDS: ACETAMINOPHEN 325 MG TABLET PO PRN (20:26)
[2019-11-05] MEDS: ENOXAPARIN 30 MG/0.3 ML SYRINGE SUBCUT SCH (20:26)
[2019-11-06 05:32] LABS: Basophils % 0.8 % (0.0-0.8); Eosinophils # 0.1 10*3/uL (0.0-0.87); Eosinophils % 2.4 % (0.00-10.9); Hematocrit 30.1 VOL% (42.0-52.0); Immature Granulocytes % 0.4 %; Immature Granulocytes Absolute 0.01 #; Lymphocytes # 0.7 10*3/uL (1.4-4.0); Lymphocytes % 29.1 % (21.2-54.2); Mean Corpuscular HGB Conc 33.2 GM/DL (32-36); Mean Corpuscular Volume 95.9 FL (87-102); Monocytes % 15.1 % (1.7-12.7); Neutrophils % 52.2 % (38.7-73.9); Platelet Count 110 T/CUMM (130-400); Red Blood Count 3.14 MC/CUMM (3.8-5.5); Red Cell Distribution Width 16.9 % (9.3-17.3); White Blood Count 2.5 T/CUMM (4-12)
[2019-11-06 05:59] LABS: Calcium 8.4 MG/DL (8.5-10.1); Osmolality,Calculated 279.1 MOS/KG (273-304); Total Protein 6.8 G/DL (6.4-8.3)
[2019-11-06] MEDS ORDERED: LIDOCAINE/PRILOCAINE CREAM 5 GM TUBE TOP PRN (08:14)
[2019-11-06] MEDS ORDERED: MUPIROCIN 2% OINT 22 GM TUBE TOP PRN (08:14)
[2019-11-06] MEDS: PANTOPRAZOLE 40 MG TABLET PO SCH (08:26)
[2019-11-06] MEDS: DOCUSATE SODIUM 100 MG CAPSULE PO SCH ×3 (08:26→21:18)
[2019-11-06] MEDS ORDERED: DARBEPOETIN ALFA 100 MCG/ML VIAL SUBCUT SCH (08:30)
[2019-11-06] MEDS: carvediloL 25 MG TABLET PO SCH ×2 (09:51→21:05)
[2019-11-06] MEDS: FUROSEMIDE 40 MG TABLET PO SCH (09:51)
[2019-11-06] MEDS: SEVELAMER CARBONATE 800 MG TABLET PO SCH ×4 (09:51→21:18)
[2019-11-06] MEDS: DUTASTERIDE 0.5 MG CAPSULE PO SCH (09:51)
[2019-11-06] MEDS: MULTIVITAMIN (CENTRUM) TABLET PO SCH (09:51)
[2019-11-06] MEDS: FENOFIBRATE 160 MG TABLET PO SCH (09:51)
[2019-11-06] MEDS: cefTRIAXone 1,000 MG in SYRINGE 1 EACH IV SCH (12:35)
[2019-11-06] MEDS: AZITHROMYCIN INJ 500 MG in SODIUM CHLORIDE 0.9% 250 ML IV SCH (13:48)
[2019-11-06] MEDS: LOPERAMIDE 2 MG CAPSULE PO PRN (15:25)
[2019-11-06] MEDS: ENOXAPARIN 30 MG/0.3 ML SYRINGE SUBCUT SCH (21:05)
[2019-11-06] MEDS: amLODIPine 10 MG TABLET PO SCH (21:10)
[2019-11-06] MEDS: cloNIDine 0.1 MG TABLET PO SCH (21:10)
[2019-11-07 05:30] LABS: Basophils % 0.4 % (0.0-0.8); Eosinophils # 0.1 10*3/uL (0.0-0.87); Eosinophils % 2.9 % (0.00-10.9); Hematocrit 29.9 VOL% (42.0-52.0); Immature Granulocytes % 0.8 %; Immature Granulocytes Absolute 0.02 #; Lymphocytes # 0.7 10*3/uL (1.4-4.0); Lymphocytes % 29.3 % (21.2-54.2); Mean Corpuscular HGB Conc 33.4 GM/DL (32-36); Mean Corpuscular Volume 95.8 FL (87-102); Mean Platelet Volume 10.6 FL (9.6-12.0); Monocytes % 12.1 % (1.7-12.7); Neutrophils % 54.5 % (38.7-73.9); Red Blood Count 3.12 MC/CUMM (3.8-5.5); Red Cell Distribution Width 16.9 % (9.3-17.3); White Blood Count 2.4 T/CUMM (4-12)
[2019-11-07 05:46] LABS: Platelet Count 97 T/CUMM (130-400)
[2019-11-07 06:05] LABS: Hypochromasia 1+; Platelet Estimate Decreased
[2019-11-07] MEDS: SEVELAMER CARBONATE 800 MG TABLET PO SCH ×3 (09:57→20:12)
[2019-11-07] MEDS: FENOFIBRATE 160 MG TABLET PO SCH (09:57)
[2019-11-07] MEDS: FUROSEMIDE 40 MG TABLET PO SCH (09:57)
[2019-11-07] MEDS: PANTOPRAZOLE 40 MG TABLET PO SCH (09:57)
[2019-11-07] MEDS: MULTIVITAMIN (CENTRUM) TABLET PO SCH (09:58)
[2019-11-07] MEDS: DUTASTERIDE 0.5 MG CAPSULE PO SCH (09:58)
[2019-11-07] MEDS: carvediloL 25 MG TABLET PO SCH ×2 (10:48→20:06)
[2019-11-07] MEDS: DOCUSATE SODIUM 100 MG CAPSULE PO SCH ×2 (10:48→20:06)
[2019-11-07] MEDS: cefTRIAXone 1,000 MG in SYRINGE 1 EACH IV SCH (13:39)
[2019-11-07] MEDS: AZITHROMYCIN INJ 500 MG in SODIUM CHLORIDE 0.9% 250 ML IV SCH (13:40)
[2019-11-07] MEDS: cloNIDine 0.1 MG TABLET PO SCH (20:07)
[2019-11-07] MEDS: ENOXAPARIN 30 MG/0.3 ML SYRINGE SUBCUT SCH (20:07)
[2019-11-07] MEDS: amLODIPine 10 MG TABLET PO SCH (20:07)
[2019-11-08 04:07] LABS: Basophils % 0.9 % (0.0-0.8); Eosinophils # 0.1 10*3/uL (0.0-0.87); Eosinophils % 2.1 % (0.00-10.9); Hematocrit 29.8 VOL% (42.0-52.0); Immature Granulocytes % 0.9 %; Immature Granulocytes Absolute 0.02 #; Lymphocytes # 0.6 10*3/uL (1.4-4.0); Lymphocytes % 27.5 % (21.2-54.2); Mean Corpuscular HGB Conc 33.6 GM/DL (32-36); Mean Corpuscular Volume 94.6 FL (87-102); Mean Platelet Volume 10.3 FL (9.6-12.0); Monocytes % 11.6 % (1.7-12.7); Platelet Count 87 T/CUMM (130-400); Red Blood Count 3.15 MC/CUMM (3.8-5.5); Red Cell Distribution Width 16.7 % (9.3-17.3); White Blood Count 2.3 T/CUMM (4-12)
[2019-11-08 04:26] LABS: Albumin 2.9 G/DL (3.4-5.0); Bilirubin,Total 0.7 MG/DL (0.2-1.0); Calcium 8.4 MG/DL (8.5-10.1); Osmolality,Calculated 273.4 MOS/KG (273-304); Total Protein 6.9 G/DL (6.4-8.3)
[2019-11-08 04:29] LABS: Platelet Estimate Decreased
[2019-11-08] MEDS: FENOFIBRATE 160 MG TABLET PO SCH (08:00)
[2019-11-08] MEDS: DUTASTERIDE 0.5 MG CAPSULE PO SCH (08:00)
[2019-11-08] MEDS: SEVELAMER CARBONATE 800 MG TABLET PO SCH ×5 (08:01→17:42)
[2019-11-08] MEDS: FUROSEMIDE 40 MG TABLET PO SCH (08:01)
[2019-11-08] MEDS: carvediloL 25 MG TABLET PO SCH ×2 (08:02→20:00)
[2019-11-08] MEDS: DOCUSATE SODIUM 100 MG CAPSULE PO SCH ×2 (08:02→20:00)
[2019-11-08] MEDS: MULTIVITAMIN (CENTRUM) TABLET PO SCH (08:02)
[2019-11-08] MEDS: cefTRIAXone 1,000 MG in SYRINGE 1 EACH IV SCH (14:12)
[2019-11-08] MEDS: AZITHROMYCIN INJ 500 MG in SODIUM CHLORIDE 0.9% 250 ML IV SCH (14:13)
[2019-11-08] MEDS: cloNIDine 0.1 MG TABLET PO SCH ×2 (15:39→19:59)
[2019-11-08] MEDS: ACETAMINOPHEN 325 MG TABLET PO PRN (15:39)
[2019-11-08] MEDS: BENZONATATE 100 MG CAPSULE PO PRN ×2 (15:52→20:03)
[2019-11-08] MEDS: DEXTROMETHORPHAN ER 6 MG/ML 90 ML/BOTTLE PO PRN (18:02)
[2019-11-08] MEDS: amLODIPine 10 MG TABLET PO SCH (19:59)
[2019-11-08] MEDS: ENOXAPARIN 30 MG/0.3 ML SYRINGE SUBCUT SCH (20:00)
[2019-11-09 04:58] LABS: Albumin 2.9 G/DL (3.4-5.0); Bilirubin,Total 0.5 MG/DL (0.2-1.0); Calcium 7.8 MG/DL (8.5-10.1); Osmolality,Calculated 275.5 MOS/KG (273-304)
[2019-11-09] MEDS: BENZONATATE 100 MG CAPSULE PO PRN ×3 (06:11→21:15)
[2019-11-09] MEDS: SEVELAMER CARBONATE 800 MG TABLET PO SCH ×3 (08:35→17:15)
[2019-11-09] MEDS: MULTIVITAMIN (CENTRUM) TABLET PO SCH (08:35)
[2019-11-09] MEDS: DOCUSATE SODIUM 100 MG CAPSULE PO SCH ×2 (08:35→21:13)
[2019-11-09] MEDS: FUROSEMIDE 40 MG TABLET PO SCH (08:35)
[2019-11-09] MEDS: cloNIDine 0.1 MG TABLET PO SCH ×4 (08:35→21:14)
[2019-11-09] MEDS: DEXTROMETHORPHAN ER 6 MG/ML 90 ML/BOTTLE PO PRN ×2 (08:35→18:22)
[2019-11-09] MEDS: DUTASTERIDE 0.5 MG CAPSULE PO SCH (08:35)
[2019-11-09] MEDS: carvediloL 25 MG TABLET PO SCH ×2 (08:35→21:15)
[2019-11-09] MEDS: FENOFIBRATE 160 MG TABLET PO SCH (08:35)
[2019-11-09] MEDS: cefTRIAXone 1,000 MG in SYRINGE 1 EACH IV SCH (13:00)
[2019-11-09] MEDS: AZITHROMYCIN INJ 500 MG in SODIUM CHLORIDE 0.9% 250 ML IV SCH (13:03)
[2019-11-09] MEDS: ENOXAPARIN 30 MG/0.3 ML SYRINGE SUBCUT SCH (21:15)
[2019-11-09] MEDS: amLODIPine 10 MG TABLET PO SCH (21:15)
[2019-11-09] MEDS: ACETAMINOPHEN 325 MG TABLET PO PRN (21:16)
[2019-11-10] MEDS: MULTIVITAMIN (CENTRUM) TABLET PO SCH (09:08)
[2019-11-10] MEDS: SEVELAMER CARBONATE 800 MG TABLET PO SCH ×3 (09:08→16:54)
[2019-11-10] MEDS: DUTASTERIDE 0.5 MG CAPSULE PO SCH (09:09)
[2019-11-10] MEDS: FENOFIBRATE 160 MG TABLET PO SCH (09:09)
[2019-11-10] MEDS: DOCUSATE SODIUM 100 MG CAPSULE PO SCH (09:26)
[2019-11-10] MEDS: LOPERAMIDE 2 MG CAPSULE PO PRN ×2 (10:05→18:12)
[2019-11-10] MEDS: FUROSEMIDE 40 MG TABLET PO SCH (10:17)
[2019-11-10] MEDS: cloNIDine 0.1 MG TABLET PO SCH ×3 (10:17→20:01)
[2019-11-10] MEDS: carvediloL 25 MG TABLET PO SCH ×2 (10:17→20:01)
[2019-11-10] MEDS: cefTRIAXone 1,000 MG in SYRINGE 1 EACH IV SCH (12:20)
[2019-11-10] MEDS: DEXTROMETHORPHAN ER 6 MG/ML 90 ML/BOTTLE PO PRN (18:12)
[2019-11-10] MEDS: ENOXAPARIN 30 MG/0.3 ML SYRINGE SUBCUT SCH (20:01)
[2019-11-10] MEDS: amLODIPine 10 MG TABLET PO SCH (20:01)
[2019-11-10] MEDS: BENZONATATE 100 MG CAPSULE PO PRN (20:36)
[2019-11-10] MEDS ORDERED: DOCUSATE SODIUM 100 MG CAPSULE PO PRN (21:00)
[2019-11-11] MEDS: LOPERAMIDE 2 MG CAPSULE PO PRN (00:08)
[2019-11-11 05:39] LABS: Basophils % 0.5 % (0.0-0.8); Eosinophils % 1.9 % (0.00-10.9); Hemoglobin 10.2 GM/DL (14.0-18.0); Immature Granulocytes % 0.9 %; Immature Granulocytes Absolute 0.02 #; Lymphocytes # 0.5 10*3/uL (1.4-4.0); Lymphocytes % 25.4 % (21.2-54.2); Mean Corpuscular Volume 92.6 FL (87-102); Monocytes % 8.9 % (1.7-12.7); Neutrophils % 62.4 % (38.7-73.9); Red Blood Count 3.24 MC/CUMM (3.8-5.5); Red Cell Distribution Width 16.4 % (9.3-17.3); White Blood Count 2.1 T/CUMM (4-12)
[2019-11-11 05:57] LABS: Platelet Count 59 T/CUMM (130-400)
[2019-11-11 06:26] LABS: Anisocytosis 2+; Macrocytosis 1+; Platelet Estimate Decreased
[2019-11-11] MEDS: SEVELAMER CARBONATE 800 MG TABLET PO SCH ×3 (08:43→16:32)
[2019-11-11] MEDS: FENOFIBRATE 160 MG TABLET PO SCH (08:43)
[2019-11-11] MEDS: carvediloL 25 MG TABLET PO SCH ×2 (08:43→20:02)
[2019-11-11] MEDS: FUROSEMIDE 40 MG TABLET PO SCH (08:43)
[2019-11-11] MEDS: DUTASTERIDE 0.5 MG CAPSULE PO SCH (08:43)
[2019-11-11] MEDS: cloNIDine 0.1 MG TABLET PO SCH ×3 (08:43→20:09)
[2019-11-11] MEDS: MULTIVITAMIN (CENTRUM) TABLET PO SCH (08:43)
[2019-11-11 09:05] LABS: Calcium 8.3 MG/DL (8.5-10.1); Osmolality,Calculated 275.5 MOS/KG (273-304)
[2019-11-11] MEDS: cefTRIAXone 1,000 MG in SYRINGE 1 EACH IV SCH (14:03)
[2019-11-11] MEDS: BENZONATATE 100 MG CAPSULE PO PRN (17:34)
[2019-11-11] MEDS: ENOXAPARIN 30 MG/0.3 ML SYRINGE SUBCUT SCH (20:08)
[2019-11-11] MEDS: amLODIPine 10 MG TABLET PO SCH (20:10)
[2019-11-12 07:38] VITALS: BP 150/42
[2019-11-12] MEDS: SEVELAMER CARBONATE 800 MG TABLET PO SCH (07:46)
[2019-11-12] MEDS ORDERED: DEXAMETHASONE 4 MG/1 ML VIAL IV ONE (08:11)
[2019-11-12] MEDS: MULTIVITAMIN (CENTRUM) TABLET PO SCH (08:45)
[2019-11-12] MEDS: FENOFIBRATE 160 MG TABLET PO SCH (08:45)
[2019-11-12] MEDS: FUROSEMIDE 40 MG TABLET PO SCH (08:46)
[2019-11-12] MEDS: DUTASTERIDE 0.5 MG CAPSULE PO SCH (08:46)
[2019-11-12] MEDS: carvediloL 25 MG TABLET PO SCH (08:46)
[2019-11-12] MEDS: cloNIDine 0.1 MG TABLET PO SCH (08:46)
[2019-11-12] MEDS: BENZONATATE 100 MG CAPSULE PO PRN (08:46)
== END 2019-11-12 10:45 | disposition home or self-care (01) | DRG 177 ==
LOC: N.2E 11:46
PROVIDERS: ADMIT Internal Medicine; ATTEND Internal Medicine

== ENCOUNTER 2019-12-15 13:18 | Inpatient (IN) ==
[2019-12-15] MEDS ORDERED: DEXTROSE 50% 25 GM/50 ML VIAL IV PRN (13:27)
[2019-12-15] MEDS ORDERED: ACETAMINOPHEN 325 MG TABLET PO PRN (13:27)
[2019-12-15] MEDS ORDERED: ONDANSETRON 4 MG/2 ML VIAL IV PRN (13:27)
[2019-12-15] MEDS ORDERED: GLUCAGON 1 MG VIAL IM PRN (13:27)
[2019-12-15] MEDS ORDERED: ALBUTEROL/IPRATROPIUM 3 ML NEB RESP TX PRN (13:32)
[2019-12-15] MEDS ORDERED: PIPERACILLIN/TAZOBACTAM 3,375 MG in SODIUM CHLORIDE 0.9% 100 ML IV SCH (18:00)
[2019-12-15] MEDS: PIPERACILLIN/TAZOBACTAM 3,375 MG in SODIUM CHLORIDE 0.9% 100 ML IV SCH (18:28)
[2019-12-15] MEDS: ALBUTEROL/IPRATROPIUM 3 ML NEB RESP TX SCH (19:50)
[2019-12-15] MEDS: DOCUSATE SODIUM 100 MG CAPSULE PO SCH (20:40)
[2019-12-15] MEDS: ZALEPLON 5 MG CAPSULE PO PRN (22:38)
[2019-12-16 03:48] LABS: Basophils % 0.2 % (0.0-0.8); Eosinophils # 0.2 10*3/uL (0.0-0.87); Eosinophils % 2.4 % (0.00-10.9); Hematocrit 25.5 VOL% (42.0-52.0); Hemoglobin 8.5 GM/DL (14.0-18.0); Immature Granulocytes % 0.3 %; Immature Granulocytes Absolute 0.02 #; Lymphocytes # 1.3 10*3/uL (1.4-4.0); Lymphocytes % 19.1 % (21.2-54.2); Mean Corpuscular HGB Conc 33.3 GM/DL (32-36); Mean Corpuscular Volume 89.8 FL (87-102); Mean Platelet Volume 10.7 FL (9.6-12.0); Monocytes % 19.7 % (1.7-12.7); Neutrophils % 58.3 % (38.7-73.9); Platelet Count 197 T/CUMM (130-400); Red Blood Count 2.84 MC/CUMM (3.8-5.5); Red Cell Distribution Width 14.6 % (9.3-17.3); White Blood Count 6.7 T/CUMM (4-12)
[2019-12-16 04:14] LABS: Calcium 9.1 MG/DL (8.5-10.1); Osmolality,Calculated 269.9 MOS/KG (273-304)
[2019-12-16 04:26] LABS: Eosinophils 1 % (0-10); Lymphocytes 25 % (20-55); Platelet Estimate Adequate; Segmented Neutrophils 53 % (50-85); Total Cells Counted 100
[2019-12-16 04:27] LABS: Hypochromasia 1+; Microcytosis 1+; Ovalocytes Slight
[2019-12-16] MEDS: PIPERACILLIN/TAZOBACTAM 3,375 MG in SODIUM CHLORIDE 0.9% 100 ML IV SCH ×2 (06:45→20:35)
[2019-12-16] MEDS: ALBUTEROL/IPRATROPIUM 3 ML NEB RESP TX SCH ×4 (07:35→19:11)
[2019-12-16] MEDS: PANTOPRAZOLE 40 MG TABLET PO SCH (09:06)
[2019-12-16] MEDS: DOCUSATE SODIUM 100 MG CAPSULE PO SCH ×2 (09:06→20:34)
[2019-12-16] MEDS: amLODIPine 10 MG TABLET PO SCH (11:05)
[2019-12-16] MEDS: SEVELAMER CARBONATE 800 MG TABLET PO SCH ×2 (11:05→16:37)
[2019-12-16] MEDS: ZALEPLON 5 MG CAPSULE PO PRN (20:34)
[2019-12-16] MEDS: cloNIDine 0.1 MG TABLET PO SCH (20:38)
[2019-12-17 03:38] LABS: Basophils % 0.5 % (0.0-0.8); Eosinophils # 0.4 10*3/uL (0.0-0.87); Eosinophils % 5.8 % (0.00-10.9); Hematocrit 25.1 VOL% (42.0-52.0); Hemoglobin 8.5 GM/DL (14.0-18.0); Immature Granulocytes % 0.8 %; Immature Granulocytes Absolute 0.06 #; Lymphocytes # 1.3 10*3/uL (1.4-4.0); Lymphocytes % 16.6 % (21.2-54.2); Mean Corpuscular HGB Conc 33.9 GM/DL (32-36); Mean Corpuscular Volume 90.3 FL (87-102); Mean Platelet Volume 10.4 FL (9.6-12.0); Monocytes % 14.9 % (1.7-12.7); Neutrophils % 61.4 % (38.7-73.9); Platelet Count 171 T/CUMM (130-400); Red Blood Count 2.78 MC/CUMM (3.8-5.5); Red Cell Distribution Width 14.6 % (9.3-17.3); White Blood Count 7.6 T/CUMM (4-12)
[2019-12-17] MEDS: ALBUTEROL/IPRATROPIUM 3 ML NEB RESP TX SCH ×4 (07:42→19:10)
[2019-12-17] MEDS: SEVELAMER CARBONATE 800 MG TABLET PO SCH ×3 (10:05→16:27)
[2019-12-17] MEDS: amLODIPine 10 MG TABLET PO SCH (12:52)
[2019-12-17] MEDS: PANTOPRAZOLE 40 MG TABLET PO SCH (12:52)
[2019-12-17] MEDS: DOCUSATE SODIUM 100 MG CAPSULE PO SCH ×2 (12:52→20:47)
[2019-12-17] MEDS: FENOFIBRATE 160 MG TABLET PO SCH (12:52)
[2019-12-17] MEDS: PIPERACILLIN/TAZOBACTAM 3,375 MG in SODIUM CHLORIDE 0.9% 100 ML IV SCH ×2 (12:52→20:46)
[2019-12-17] MEDS: ZALEPLON 5 MG CAPSULE PO PRN (20:47)
[2019-12-17] MEDS: cloNIDine 0.1 MG TABLET PO SCH (20:47)
[2019-12-18 05:51] LABS: Basophils % 0.6 % (0.0-0.8); Eosinophils # 0.4 10*3/uL (0.0-0.87); Eosinophils % 6.3 % (0.00-10.9); Hematocrit 24.5 VOL% (42.0-52.0); Hemoglobin 8.2 GM/DL (14.0-18.0); Immature Granulocytes % 0.6 %; Immature Granulocytes Absolute 0.04 #; Lymphocytes # 1.1 10*3/uL (1.4-4.0); Lymphocytes % 15.6 % (21.2-54.2); Mean Corpuscular HGB Conc 33.5 GM/DL (32-36); Mean Corpuscular Volume 89.7 FL (87-102); Mean Platelet Volume 10.7 FL (9.6-12.0); Monocytes % 14.5 % (1.7-12.7); Neutrophils % 62.4 % (38.7-73.9); Platelet Count 152 T/CUMM (130-400); Red Blood Count 2.73 MC/CUMM (3.8-5.5); Red Cell Distribution Width 14.7 % (9.3-17.3)
[2019-12-18] MEDS: ALBUTEROL/IPRATROPIUM 3 ML NEB RESP TX SCH ×4 (07:51→19:28)
[2019-12-18] MEDS: FENOFIBRATE 160 MG TABLET PO SCH (08:27)
[2019-12-18] MEDS: amLODIPine 10 MG TABLET PO SCH (08:27)
[2019-12-18] MEDS: SEVELAMER CARBONATE 800 MG TABLET PO SCH ×3 (08:27→18:25)
[2019-12-18] MEDS: PIPERACILLIN/TAZOBACTAM 3,375 MG in SODIUM CHLORIDE 0.9% 100 ML IV SCH ×2 (08:28→20:17)
[2019-12-18] MEDS: DOCUSATE SODIUM 100 MG CAPSULE PO SCH ×2 (08:28→20:17)
[2019-12-18] MEDS: PANTOPRAZOLE 40 MG TABLET PO SCH (08:28)
[2019-12-18] MEDS: INSULIN REGULAR 100 UNIT/ML SUBCUT SCH ×2 (13:03→18:20)
[2019-12-18 15:35] LABS: Lymphocytes,Pleural Fluid 43 %; Neutrophils,Pleural Fluid 57 %
[2019-12-18 15:38] LABS: RBC,Pleural Fluid 1 T/CUMM
[2019-12-18 15:43] LABS: Glucose,Pleural Fluid 160 MG/DL; LDH,Body Fluid 105 U/L
[2019-12-18] MEDS: cloNIDine 0.1 MG TABLET PO SCH (20:17)
[2019-12-18] MEDS: ZALEPLON 5 MG CAPSULE PO PRN (20:18)
[2019-12-18] MEDS ORDERED: BENZONATATE 100 MG CAPSULE PO PRN (20:27)
[2019-12-19] MEDS: INSULIN REGULAR 100 UNIT/ML SUBCUT SCH ×5 (02:38→21:45)
[2019-12-19] MEDS: ALBUTEROL/IPRATROPIUM 3 ML NEB RESP TX SCH ×4 (07:37→19:21)
[2019-12-19] MEDS: SEVELAMER CARBONATE 800 MG TABLET PO SCH ×3 (08:04→17:03)
[2019-12-19] MEDS: FENOFIBRATE 160 MG TABLET PO SCH (08:05)
[2019-12-19] MEDS: DOCUSATE SODIUM 100 MG CAPSULE PO SCH ×2 (08:05→21:46)
[2019-12-19] MEDS: amLODIPine 10 MG TABLET PO SCH (08:05)
[2019-12-19] MEDS: PANTOPRAZOLE 40 MG TABLET PO SCH (08:05)
[2019-12-19] MEDS: PIPERACILLIN/TAZOBACTAM 3,375 MG in SODIUM CHLORIDE 0.9% 100 ML IV SCH ×2 (13:27→21:45)
[2019-12-19 14:46] LABS: Basophils % 0.3 % (0.0-0.8); Eosinophils # 0.6 10*3/uL (0.0-0.87); Eosinophils % 6.5 % (0.00-10.9); Hematocrit 24.6 VOL% (42.0-52.0); Hemoglobin 8.3 GM/DL (14.0-18.0); Immature Granulocytes % 0.7 %; Immature Granulocytes Absolute 0.07 #; Lymphocytes # 0.9 10*3/uL (1.4-4.0); Lymphocytes % 8.8 % (21.2-54.2); Mean Corpuscular HGB Conc 33.7 GM/DL (32-36); Mean Corpuscular Volume 90.1 FL (87-102); Mean Platelet Volume 11.4 FL (9.6-12.0); Monocytes % 12.1 % (1.7-12.7); Neutrophils % 71.6 % (38.7-73.9); Platelet Count 160 T/CUMM (130-400); Red Blood Count 2.73 MC/CUMM (3.8-5.5); Red Cell Distribution Width 14.9 % (9.3-17.3); White Blood Count 9.6 T/CUMM (4-12)
[2019-12-19 15:07] LABS: Calcium 8.9 MG/DL (8.5-10.1); Osmolality,Calculated 277.1 MOS/KG (273-304)
[2019-12-19] MEDS: ZALEPLON 5 MG CAPSULE PO PRN (21:47)
[2019-12-19] MEDS: cloNIDine 0.1 MG TABLET PO SCH (21:48)
[2019-12-20 03:59] LABS: Basophils # 0.1 10*3/uL (0.0-0.2); Basophils % 0.7 % (0.0-0.8); Eosinophils # 0.6 10*3/uL (0.0-0.87); Eosinophils % 6.8 % (0.00-10.9); Hematocrit 21.2 VOL% (42.0-52.0); Hemoglobin 7.1 GM/DL (14.0-18.0); Immature Granulocytes % 0.9 %; Immature Granulocytes Absolute 0.08 #; Lymphocytes % 10.3 % (21.2-54.2); Mean Corpuscular HGB Conc 33.5 GM/DL (32-36); Mean Corpuscular Volume 90.6 FL (87-102); Mean Platelet Volume 11.1 FL (9.6-12.0); Monocytes % 17.4 % (1.7-12.7); Neutrophils % 63.9 % (38.7-73.9); Platelet Count 114 T/CUMM (130-400); Red Blood Count 2.34 MC/CUMM (3.8-5.5); White Blood Count 9.2 T/CUMM (4-12)
[2019-12-20 04:23] LABS: Calcium 8.9 MG/DL (8.5-10.1); Osmolality,Calculated 271.4 MOS/KG (273-304)
[2019-12-20 04:40] LABS: Eosinophils 3 % (0-10); Hypochromasia 1+; Lymphocytes 11 % (20-55); Platelet Estimate Normal; Segmented Neutrophils 75 % (50-85); Total Cells Counted 100
[2019-12-20] MEDS: ALBUTEROL/IPRATROPIUM 3 ML NEB RESP TX SCH ×4 (08:23→19:30)
[2019-12-20] MEDS: INSULIN REGULAR 100 UNIT/ML SUBCUT SCH ×4 (08:36→21:10)
[2019-12-20] MEDS: amLODIPine 10 MG TABLET PO SCH (08:37)
[2019-12-20] MEDS: FENOFIBRATE 160 MG TABLET PO SCH (08:37)
[2019-12-20] MEDS: PANTOPRAZOLE 40 MG TABLET PO SCH (08:37)
[2019-12-20] MEDS: SEVELAMER CARBONATE 800 MG TABLET PO SCH ×3 (08:37→16:34)
[2019-12-20] MEDS: DOCUSATE SODIUM 100 MG CAPSULE PO SCH ×2 (08:37→21:23)
[2019-12-20] MEDS: PIPERACILLIN/TAZOBACTAM 3,375 MG in SODIUM CHLORIDE 0.9% 100 ML IV SCH ×2 (08:38→21:22)
[2019-12-20 14:33] LABS: Hematocrit 23.5 VOL% (42.0-52.0); Hemoglobin 7.5 GM/DL (14.0-18.0)
[2019-12-20] MEDS ORDERED: SODIUM CHLORIDE 0.9% 1,000 ML IV PRN (14:38)
[2019-12-20] MEDS: CLOTRIMAZOLE 1% CREAM 15 GM TUBE TOP SCH (21:10)
[2019-12-20] MEDS: cloNIDine 0.1 MG TABLET PO SCH (21:25)
[2019-12-20] MEDS: ZALEPLON 5 MG CAPSULE PO PRN (21:25)
[2019-12-21 00:59] LABS: Hematocrit 21.9 VOL% (42.0-52.0); Hemoglobin 7.5 GM/DL (14.0-18.0)
[2019-12-21] MEDS: ALBUTEROL/IPRATROPIUM 3 ML NEB RESP TX SCH ×4 (07:20→19:02)
[2019-12-21] MEDS: PANTOPRAZOLE 40 MG TABLET PO SCH (08:05)
[2019-12-21] MEDS: PIPERACILLIN/TAZOBACTAM 3,375 MG in SODIUM CHLORIDE 0.9% 100 ML IV SCH ×2 (08:05→21:38)
[2019-12-21] MEDS: amLODIPine 10 MG TABLET PO SCH (08:05)
[2019-12-21] MEDS: SEVELAMER CARBONATE 800 MG TABLET PO SCH ×3 (08:06→16:23)
[2019-12-21] MEDS: CLOTRIMAZOLE 1% CREAM 15 GM TUBE TOP SCH ×2 (08:06→21:40)
[2019-12-21] MEDS: DOCUSATE SODIUM 100 MG CAPSULE PO SCH ×2 (08:06→21:40)
[2019-12-21] MEDS: FENOFIBRATE 160 MG TABLET PO SCH (08:06)
[2019-12-21] MEDS: INSULIN REGULAR 100 UNIT/ML SUBCUT SCH ×4 (08:06→21:39)
[2019-12-21] MEDS ORDERED: SODIUM CHLORIDE 0.9% 1,000 ML IV PRN (08:21)
[2019-12-21] MEDS: cloNIDine 0.1 MG TABLET PO SCH (21:40)
[2019-12-21] MEDS: ZALEPLON 5 MG CAPSULE PO PRN (21:40)
[2019-12-22 05:56] LABS: Basophils # 0.1 10*3/uL (0.0-0.2); Basophils % 0.7 % (0.0-0.8); Eosinophils # 0.7 10*3/uL (0.0-0.87); Eosinophils % 7.7 % (0.00-10.9); Hematocrit 22.9 VOL% (42.0-52.0); Hemoglobin 7.7 GM/DL (14.0-18.0); Immature Granulocytes % 0.9 %; Immature Granulocytes Absolute 0.08 #; Lymphocytes # 0.9 10*3/uL (1.4-4.0); Lymphocytes % 10.5 % (21.2-54.2); Mean Corpuscular HGB Conc 33.6 GM/DL (32-36); Mean Corpuscular Volume 88.1 FL (87-102); Mean Platelet Volume 11.9 FL (9.6-12.0); Monocytes % 12.8 % (1.7-12.7); Neutrophils % 67.4 % (38.7-73.9); Platelet Count 132 T/CUMM (130-400); Red Cell Distribution Width 15.8 % (9.3-17.3); White Blood Count 8.9 T/CUMM (4-12)
[2019-12-22] MEDS: ALBUTEROL/IPRATROPIUM 3 ML NEB RESP TX SCH ×4 (07:01→19:35)
[2019-12-22] MEDS: INSULIN REGULAR 100 UNIT/ML SUBCUT SCH ×4 (08:07→21:20)
[2019-12-22] MEDS: SEVELAMER CARBONATE 800 MG TABLET PO SCH ×3 (12:24→17:21)
[2019-12-22] MEDS: PIPERACILLIN/TAZOBACTAM 3,375 MG in SODIUM CHLORIDE 0.9% 100 ML IV SCH ×2 (12:43→21:20)
[2019-12-22] MEDS: amLODIPine 10 MG TABLET PO SCH (12:43)
[2019-12-22] MEDS: PANTOPRAZOLE 40 MG TABLET PO SCH (12:43)
[2019-12-22] MEDS: FENOFIBRATE 160 MG TABLET PO SCH (12:43)
[2019-12-22] MEDS: DOCUSATE SODIUM 100 MG CAPSULE PO SCH ×2 (12:44→21:20)
[2019-12-22] MEDS: CLOTRIMAZOLE 1% CREAM 15 GM TUBE TOP SCH ×2 (12:44→21:20)
[2019-12-22 13:13] LABS: Hematocrit 32.1 VOL% (42.0-52.0); Hemoglobin 11.1 GM/DL (14.0-18.0)
[2019-12-22] MEDS: cloNIDine 0.1 MG TABLET PO SCH (21:08)
[2019-12-22] MEDS: ZALEPLON 5 MG CAPSULE PO PRN (21:08)
[2019-12-23 07:02] LABS: Basophils # 0.1 10*3/uL (0.0-0.2); Basophils % 0.8 % (0.0-0.8); Eosinophils # 0.5 10*3/uL (0.0-0.87); Eosinophils % 6.6 % (0.00-10.9); Hematocrit 30.9 VOL% (42.0-52.0); Hemoglobin 10.1 GM/DL (14.0-18.0); Immature Granulocytes % 0.7 %; Immature Granulocytes Absolute 0.06 #; Lymphocytes # 1.1 10*3/uL (1.4-4.0); Mean Corpuscular HGB Conc 32.7 GM/DL (32-36); Mean Corpuscular Volume 86.8 FL (87-102); Mean Platelet Volume 11.6 FL (9.6-12.0); Neutrophils % 64.9 % (38.7-73.9); Platelet Count 127 T/CUMM (130-400); Red Blood Count 3.56 MC/CUMM (3.8-5.5); Red Cell Distribution Width 15.8 % (9.3-17.3); White Blood Count 8.2 T/CUMM (4-12)
[2019-12-23] MEDS: ALBUTEROL/IPRATROPIUM 3 ML NEB RESP TX SCH ×4 (07:16→20:09)
[2019-12-23] MEDS: SEVELAMER CARBONATE 800 MG TABLET PO SCH ×3 (08:44→17:15)
[2019-12-23] MEDS: cloNIDine 0.1 MG TABLET PO SCH ×2 (08:44→21:21)
[2019-12-23] MEDS: FENOFIBRATE 160 MG TABLET PO SCH (08:44)
[2019-12-23] MEDS: PANTOPRAZOLE 40 MG TABLET PO SCH (08:45)
[2019-12-23] MEDS: amLODIPine 10 MG TABLET PO SCH (08:45)
[2019-12-23] MEDS: DOCUSATE SODIUM 100 MG CAPSULE PO SCH ×2 (08:45→21:21)
[2019-12-23] MEDS: CLOTRIMAZOLE 1% CREAM 15 GM TUBE TOP SCH ×2 (08:46→21:28)
[2019-12-23] MEDS: FUROSEMIDE 40 MG TABLET PO SCH ×2 (08:53→17:13)
[2019-12-23] MEDS: INSULIN REGULAR 100 UNIT/ML SUBCUT SCH ×4 (08:55→21:28)
[2019-12-23 09:07] LABS: Calcium 9.5 MG/DL (8.5-10.1); Osmolality,Calculated 278.4 MOS/KG (273-304)
[2019-12-23] MEDS ORDERED: ZALEPLON 5 MG CAPSULE PO ONE (21:09)
[2019-12-24 05:44] LABS: Basophils # 0.1 10*3/uL (0.0-0.2); Basophils % 0.8 % (0.0-0.8); Eosinophils # 0.6 10*3/uL (0.0-0.87); Eosinophils % 7.8 % (0.00-10.9); Hematocrit 26.3 VOL% (42.0-52.0); Immature Granulocytes % 0.4 %; Immature Granulocytes Absolute 0.03 #; Lymphocytes # 0.9 10*3/uL (1.4-4.0); Lymphocytes % 12.5 % (21.2-54.2); Mean Corpuscular HGB Conc 34.2 GM/DL (32-36); Mean Corpuscular Volume 86.8 FL (87-102); Mean Platelet Volume 11.7 FL (9.6-12.0); Monocytes % 13.7 % (1.7-12.7); Neutrophils % 64.8 % (38.7-73.9); Platelet Count 112 T/CUMM (130-400); Red Blood Count 3.03 MC/CUMM (3.8-5.5); Red Cell Distribution Width 15.8 % (9.3-17.3); White Blood Count 7.1 T/CUMM (4-12)
[2019-12-24 06:01] LABS: Hypochromasia 1+; Microcytosis Slight; Platelet Estimate Decreased
[2019-12-24] MEDS: ALBUTEROL/IPRATROPIUM 3 ML NEB RESP TX SCH ×4 (07:30→20:12)
[2019-12-24] MEDS: INSULIN REGULAR 100 UNIT/ML SUBCUT SCH ×4 (08:12→22:04)
[2019-12-24] MEDS: SEVELAMER CARBONATE 800 MG TABLET PO SCH ×3 (09:18→16:21)
[2019-12-24] MEDS: amLODIPine 10 MG TABLET PO SCH (13:14)
[2019-12-24] MEDS: cloNIDine 0.1 MG TABLET PO SCH ×2 (13:14→20:34)
[2019-12-24] MEDS: DOCUSATE SODIUM 100 MG CAPSULE PO SCH ×2 (13:14→20:34)
[2019-12-24] MEDS: FENOFIBRATE 160 MG TABLET PO SCH (13:14)
[2019-12-24] MEDS: FUROSEMIDE 80 MG TABLET PO SCH (13:14)
[2019-12-24] MEDS: PANTOPRAZOLE 40 MG TABLET PO SCH (13:15)
[2019-12-24] MEDS: CLOTRIMAZOLE 1% CREAM 15 GM TUBE TOP SCH ×2 (13:33→20:37)
[2019-12-24] MEDS ORDERED: ZALEPLON 5 MG CAPSULE PO PRN (20:19)
[2019-12-25] MEDS: ALBUTEROL/IPRATROPIUM 3 ML NEB RESP TX SCH (07:15)
[2019-12-25] MEDS: INSULIN REGULAR 100 UNIT/ML SUBCUT SCH (07:37)
[2019-12-25 07:45] VITALS: BP 164/55
[2019-12-25 08:27] LABS: Calcium 9.4 MG/DL (8.5-10.1); Osmolality,Calculated 278.2 MOS/KG (273-304)
[2019-12-25] MEDS: amLODIPine 10 MG TABLET PO SCH (08:42)
[2019-12-25] MEDS: FUROSEMIDE 80 MG TABLET PO SCH (08:42)
[2019-12-25] MEDS: FENOFIBRATE 160 MG TABLET PO SCH (08:42)
[2019-12-25] MEDS: DOCUSATE SODIUM 100 MG CAPSULE PO SCH (08:43)
[2019-12-25] MEDS: PANTOPRAZOLE 40 MG TABLET PO SCH (08:43)
[2019-12-25] MEDS: SEVELAMER CARBONATE 800 MG TABLET PO SCH (08:43)
[2019-12-25] MEDS: cloNIDine 0.1 MG TABLET PO SCH (08:43)
[2019-12-25] MEDS: CLOTRIMAZOLE 1% CREAM 15 GM TUBE TOP SCH (08:44)
== END 2019-12-25 10:23 | disposition home health service (06) | DRG 640 ==
LOC: N.5E 17:35
PROVIDERS: ADMIT Internal Medicine; ATTEND Internal Medicine

== ENCOUNTER 2021-01-26 14:04 | Inpatient (IN) ==
[2021-01-26 15:56] LABS: Basophils % 0.2 % (0.0-0.8); Eosinophils # 0.1 10*3/uL (0.0-0.87); Eosinophils % 1.6 % (0.00-10.9); Hematocrit 26.8 VOL% (42.0-52.0); Hemoglobin 8.5 GM/DL (14.0-18.0); Immature Granulocytes % 0.5 %; Immature Granulocytes Absolute 0.04 #; Lymphocytes # 0.6 10*3/uL (1.4-4.0); Lymphocytes % 6.9 % (21.2-54.2); Mean Corpuscular HGB Conc 31.7 GM/DL (32-36); Mean Corpuscular Volume 95.4 FL (87-102); Mean Platelet Volume 11.2 FL (9.6-12.0); Monocytes % 10.4 % (1.7-12.7); Neutrophils % 80.4 % (38.7-73.9); Platelet Count 164 T/CUMM (130-400); Red Blood Count 2.81 MC/CUMM (3.8-5.5); Red Cell Distribution Width 17.1 % (9.3-17.3); White Blood Count 8.5 T/CUMM (4-12)
[2021-01-26] MEDS ORDERED: AZITHROMYCIN 250 MG TABLET PO STA (16:18)
[2021-01-26] MEDS ORDERED: ENOXAPARIN 30 MG/0.3 ML SYRINGE SUBCUT STA (16:18)
[2021-01-26] MEDS ORDERED: cefTRIAXone 1,000 MG in SODIUM CHLORIDE 0.9% 100 ML IV STA (16:18)
[2021-01-26 16:19] LABS: Albumin 2.9 G/DL (3.4-5.0); Bilirubin,Total 0.7 MG/DL (0.20-1.00); Calcium 8.7 MG/DL (8.5-10.1); Osmolality,Calculated 297.5 MOS/KG (273-304); Potassium 4.7 MMOL/L (3.5-5.1); Total Protein 6.5 G/DL (6.4-8.2)
[2021-01-26] MEDS ORDERED: GLUCAGON 1 MG VIAL IM PRN (16:25)
[2021-01-26] MEDS ORDERED: ONDANSETRON 4 MG/2 ML VIAL IV PRN (16:25)
[2021-01-26] MEDS: DEXTROSE 50% 25 GM/50 ML SYRINGE IV PRN ×2 (17:21→19:30)
[2021-01-26] MEDS: INSULIN REGULAR 100 UNIT/ML SUBCUT SCH ×2 (17:30→21:17)
[2021-01-26] MEDS: ACETAMINOPHEN 325 MG TABLET PO PRN (20:47)
[2021-01-26] MEDS: DOCUSATE SODIUM 100 MG CAPSULE PO SCH (20:50)
[2021-01-26] MEDS: LIDOCAINE 5% PATCH TRANSDERM SCH (21:20)
[2021-01-27] MEDS: DOCUSATE SODIUM 100 MG CAPSULE PO SCH ×2 (08:33→21:12)
[2021-01-27] MEDS: PANTOPRAZOLE 40 MG TABLET PO SCH (08:33)
[2021-01-27] MEDS: AZITHROMYCIN 250 MG TABLET PO SCH (08:33)
[2021-01-27] MEDS ORDERED: FUROSEMIDE 40 MG/4 ML VIAL IV ONE (08:34)
[2021-01-27] MEDS: cefTRIAXone 1,000 MG in SODIUM CHLORIDE 0.9% 100 ML IV SCH (08:35)
[2021-01-27] MEDS: INSULIN REGULAR 100 UNIT/ML SUBCUT SCH ×4 (08:36→21:13)
[2021-01-27] MEDS ORDERED: MORPHINE 2 MG/1 ML SYRINGE IV PRN (08:37)
[2021-01-27] MEDS ORDERED: ALBUTEROL 2.5 MG/3 ML NEB RESP TX ONE (08:38)
[2021-01-27] MEDS ORDERED: ALBUTEROL 2.5 MG/3 ML NEB RESP TX PRN (08:38)
[2021-01-27] MEDS ORDERED: traMADol 50 MG TABLET PO PRN (08:56)
[2021-01-27] MEDS: BENZONATATE 100 MG CAPSULE PO SCH ×3 (10:43→21:12)
[2021-01-27] MEDS: MULTIVITAMIN (BEROCCA) TABLET PO SCH (10:43)
[2021-01-27] MEDS: LORATADINE 10 MG TABLET PO SCH (10:44)
[2021-01-27] MEDS: SEVELAMER CARBONATE 800 MG TABLET PO SCH ×3 (10:44→21:12)
[2021-01-27] MEDS: DUTASTERIDE 0.5 MG CAPSULE PO SCH (10:44)
[2021-01-27] MEDS: carvediloL 6.25 MG TABLET PO SCH ×2 (10:44→16:19)
[2021-01-27] MEDS: methylPREDNISolone SOD SUC 40 MG/1 ML VIAL IV SCH ×2 (10:46→16:24)
[2021-01-27] MEDS ORDERED: TRIAMCINOLONE ACETONIDE 40 MG/1 ML VIAL MISC INJ ONE (10:58)
[2021-01-27] MEDS: MORPHINE 2 MG/1 ML SYRINGE IV PRN (12:07)
[2021-01-27] MEDS ORDERED: ROPIVACAINE 0.5% 30 ML VIAL NERVEBLOCK ONE (14:01)
[2021-01-27] MEDS: ALBUTEROL 2.5 MG/3 ML NEB RESP TX SCH ×2 (14:39→20:12)
[2021-01-27] MEDS: LIDOCAINE 5% PATCH TRANSDERM SCH (21:13)
[2021-01-28] MEDS: ALBUTEROL 2.5 MG/3 ML NEB RESP TX SCH ×4 (01:05→19:50)
[2021-01-28] MEDS: methylPREDNISolone SOD SUC 40 MG/1 ML VIAL IV SCH ×3 (01:33→16:36)
[2021-01-28] MEDS: MORPHINE 2 MG/1 ML SYRINGE IV PRN (02:50)
[2021-01-28 06:09] LABS: Hematocrit 24.6 VOL% (42.0-52.0); Hemoglobin 7.8 GM/DL (14.0-18.0); Immature Granulocytes % 0.6 %; Immature Granulocytes Absolute 0.03 #; Lymphocytes # 0.2 10*3/uL (1.4-4.0); Lymphocytes % 4.8 % (21.2-54.2); Mean Corpuscular HGB Conc 31.7 GM/DL (32-36); Mean Platelet Volume 10.9 FL (9.6-12.0); Monocytes % 2.8 % (1.7-12.7); Neutrophils % 91.8 % (38.7-73.9); Platelet Count 137 T/CUMM (130-400); Red Blood Count 2.59 MC/CUMM (3.8-5.5); Red Cell Distribution Width 16.1 % (9.3-17.3); White Blood Count 4.6 T/CUMM (4-12)
[2021-01-28 06:28] LABS: Calcium 9.1 MG/DL (8.5-10.1); Osmolality,Calculated 301.9 MOS/KG (273-304)
[2021-01-28 06:39] LABS: Lymphocytes 5 % (20-55); Segmented Neutrophils 92 % (50-85); Total Cells Counted 100
[2021-01-28 06:40] LABS: Hypochromasia 1+; Microcytosis 1+; Platelet Estimate Normal
[2021-01-28] MEDS: AZITHROMYCIN 250 MG TABLET PO SCH (08:34)
[2021-01-28] MEDS: DUTASTERIDE 0.5 MG CAPSULE PO SCH (08:34)
[2021-01-28] MEDS: DOCUSATE SODIUM 100 MG CAPSULE PO SCH ×2 (08:35→21:22)
[2021-01-28] MEDS: MULTIVITAMIN (BEROCCA) TABLET PO SCH (08:35)
[2021-01-28] MEDS: SEVELAMER CARBONATE 800 MG TABLET PO SCH ×3 (08:35→21:22)
[2021-01-28] MEDS: carvediloL 6.25 MG TABLET PO SCH ×2 (08:36→16:35)
[2021-01-28] MEDS: LORATADINE 10 MG TABLET PO SCH (08:36)
[2021-01-28] MEDS: BENZONATATE 100 MG CAPSULE PO SCH ×3 (08:36→21:21)
[2021-01-28] MEDS: PANTOPRAZOLE 40 MG TABLET PO SCH (08:37)
[2021-01-28] MEDS: INSULIN REGULAR 100 UNIT/ML SUBCUT SCH ×4 (08:38→23:32)
[2021-01-28] MEDS: cefTRIAXone 1,000 MG in SODIUM CHLORIDE 0.9% 100 ML IV SCH (08:38)
[2021-01-28 14:07] LABS: HIV Antigen/Antibody Result Nonreactive (Nonreactive); Hepatitis B Surface Ag Quant < 0.10 Index; Hepatitis B Surface Ag Result Non-Reactive (NonReactive); Hepatitis C Virus Ab Quant < 0.02 Index; Hepatitis C Virus Ab Result Non-Reactive (NonReactive)
[2021-01-28] MEDS ORDERED: FUROSEMIDE 40 MG/4 ML VIAL IV ONE (16:15)
[2021-01-28] MEDS: FLUTICASONE/SALMETEROL 250-50 DISKUS 14 DOSE INH SCH (16:41)
[2021-01-28] MEDS: LIDOCAINE 5% PATCH TRANSDERM SCH (21:22)
[2021-01-29] MEDS: ALBUTEROL 2.5 MG/3 ML NEB RESP TX SCH ×4 (00:05→20:00)
[2021-01-29] MEDS: ALUMINUM/MAGNES/SIMETH MAX STR 30 ML UDCUP PO PRN (01:10)
[2021-01-29] MEDS: methylPREDNISolone SOD SUC 40 MG/1 ML VIAL IV SCH ×3 (01:14→16:51)
[2021-01-29] MEDS: cloNIDine 0.1 MG TABLET PO PRN (04:56)
[2021-01-29] MEDS: BENZONATATE 100 MG CAPSULE PO SCH ×3 (10:01→22:38)
[2021-01-29] MEDS: LORATADINE 10 MG TABLET PO SCH (10:01)
[2021-01-29] MEDS: AZITHROMYCIN 250 MG TABLET PO SCH (10:01)
[2021-01-29] MEDS: DOCUSATE SODIUM 100 MG CAPSULE PO SCH ×2 (10:02→22:37)
[2021-01-29] MEDS: carvediloL 6.25 MG TABLET PO SCH ×2 (10:02→16:51)
[2021-01-29] MEDS: DUTASTERIDE 0.5 MG CAPSULE PO SCH (10:02)
[2021-01-29] MEDS: SEVELAMER CARBONATE 800 MG TABLET PO SCH ×3 (10:02→22:38)
[2021-01-29] MEDS: MULTIVITAMIN (BEROCCA) TABLET PO SCH (10:03)
[2021-01-29] MEDS: INSULIN REGULAR 100 UNIT/ML SUBCUT SCH ×4 (10:05→22:37)
[2021-01-29] MEDS: cefTRIAXone 1,000 MG in SODIUM CHLORIDE 0.9% 100 ML IV SCH (10:06)
[2021-01-29] MEDS: PANTOPRAZOLE 40 MG TABLET PO SCH (10:10)
[2021-01-29] MEDS: FLUTICASONE/SALMETEROL 250-50 DISKUS 14 DOSE INH SCH (10:51)
[2021-01-29] MEDS ORDERED: TRIAMCINOLONE ACETONIDE 40 MG/1 ML VIAL INTRAARTIC ONE (11:02)
[2021-01-29] MEDS ORDERED: ROPIVACAINE 0.5% 30 ML VIAL MISC INJ ONE (11:30)
[2021-01-29] MEDS: LIDOCAINE 5% PATCH TRANSDERM SCH (22:37)
[2021-01-30] MEDS: ALUMINUM/MAGNES/SIMETH MAX STR 30 ML UDCUP PO PRN ×2 (00:42→10:00)
[2021-01-30] MEDS: ALBUTEROL 2.5 MG/3 ML NEB RESP TX SCH ×4 (00:48→20:13)
[2021-01-30] MEDS: methylPREDNISolone SOD SUC 40 MG/1 ML VIAL IV SCH ×3 (01:21→17:14)
[2021-01-30 06:05] LABS: Hemoglobin 8.5 GM/DL (14.0-18.0); Immature Granulocytes % 0.9 %; Immature Granulocytes Absolute 0.08 #; Lymphocytes # 0.4 10*3/uL (1.4-4.0); Mean Corpuscular HGB Conc 32.7 GM/DL (32-36); Mean Corpuscular Volume 92.5 FL (87-102); Mean Platelet Volume 11.4 FL (9.6-12.0); Monocytes % 4.2 % (1.7-12.7); Neutrophils % 90.9 % (38.7-73.9); Platelet Count 187 T/CUMM (130-400); Red Blood Count 2.81 MC/CUMM (3.8-5.5); Red Cell Distribution Width 15.6 % (9.3-17.3); White Blood Count 9.3 T/CUMM (4-12)
[2021-01-30 06:22] LABS: Osmolality,Calculated 282.4 MOS/KG (273-304); Potassium 4.4 MMOL/L (3.5-5.1)
[2021-01-30 06:28] LABS: Hypochromasia 1+; Lymphocytes 4 % (20-55); Microcytosis 1+; Platelet Estimate Adequate; Segmented Neutrophils 93 % (50-85); Total Cells Counted 100
[2021-01-30] MEDS: INSULIN REGULAR 100 UNIT/ML SUBCUT SCH ×4 (08:18→21:56)
[2021-01-30] MEDS: AZITHROMYCIN 250 MG TABLET PO SCH (09:54)
[2021-01-30] MEDS: DOCUSATE SODIUM 100 MG CAPSULE PO SCH ×2 (09:54→22:41)
[2021-01-30] MEDS: PANTOPRAZOLE 40 MG TABLET PO SCH ×2 (09:54→22:41)
[2021-01-30] MEDS: MULTIVITAMIN (BEROCCA) TABLET PO SCH (09:54)
[2021-01-30] MEDS: BENZONATATE 100 MG CAPSULE PO SCH ×3 (09:55→22:41)
[2021-01-30] MEDS: BACILLUS COAGULANS CAPLET PO SCH (09:55)
[2021-01-30] MEDS: DUTASTERIDE 0.5 MG CAPSULE PO SCH (09:55)
[2021-01-30] MEDS: carvediloL 6.25 MG TABLET PO SCH ×2 (09:55→17:14)
[2021-01-30] MEDS: LORATADINE 10 MG TABLET PO SCH (09:55)
[2021-01-30] MEDS: FLUTICASONE/SALMETEROL 250-50 DISKUS 14 DOSE INH SCH (09:56)
[2021-01-30] MEDS: cefTRIAXone 1,000 MG in SODIUM CHLORIDE 0.9% 100 ML IV SCH (09:56)
[2021-01-30] MEDS: SEVELAMER CARBONATE 800 MG TABLET PO SCH ×3 (10:21→17:14)
[2021-01-30] MEDS: LIDOCAINE 5% PATCH TRANSDERM SCH (22:42)
[2021-01-31] MEDS: ALBUTEROL 2.5 MG/3 ML NEB RESP TX SCH ×4 (00:19→19:19)
[2021-01-31] MEDS: methylPREDNISolone SOD SUC 40 MG/1 ML VIAL IV SCH ×3 (01:00→17:17)
[2021-01-31] MEDS: ALUMINUM/MAGNES/SIMETH MAX STR 30 ML UDCUP PO PRN ×2 (01:00→21:30)
[2021-01-31 06:13] LABS: Hematocrit 25.5 VOL% (42.0-52.0); Hemoglobin 8.5 GM/DL (14.0-18.0); Immature Granulocytes % 0.7 %; Immature Granulocytes Absolute 0.06 #; Lymphocytes # 0.3 10*3/uL (1.4-4.0); Lymphocytes % 3.5 % (21.2-54.2); Mean Corpuscular HGB Conc 33.3 GM/DL (32-36); Mean Corpuscular Volume 91.4 FL (87-102); Mean Platelet Volume 11.3 FL (9.6-12.0); Monocytes % 5.1 % (1.7-12.7); Neutrophils % 90.7 % (38.7-73.9); Platelet Count 175 T/CUMM (130-400); Red Blood Count 2.79 MC/CUMM (3.8-5.5); Red Cell Distribution Width 15.6 % (9.3-17.3); White Blood Count 8.4 T/CUMM (4-12)
[2021-01-31 06:31] LABS: Calcium 8.9 MG/DL (8.5-10.1); Osmolality,Calculated 285.5 MOS/KG (273-304); Potassium 4.5 MMOL/L (3.5-5.1)
[2021-01-31 06:39] LABS: Hypochromasia 1+; Lymphocytes 4 % (20-55); Microcytosis 1+; Platelet Estimate Adequate; Segmented Neutrophils 94 % (50-85); Total Cells Counted 100
[2021-01-31] MEDS: cefTRIAXone 1,000 MG in SODIUM CHLORIDE 0.9% 100 ML IV SCH (09:43)
[2021-01-31] MEDS: INSULIN REGULAR 100 UNIT/ML SUBCUT SCH ×4 (09:44→21:25)
[2021-01-31] MEDS: MULTIVITAMIN (BEROCCA) TABLET PO SCH (09:45)
[2021-01-31] MEDS: BENZONATATE 100 MG CAPSULE PO SCH ×3 (09:45→21:26)
[2021-01-31] MEDS: BACILLUS COAGULANS CAPLET PO SCH (09:45)
[2021-01-31] MEDS: carvediloL 6.25 MG TABLET PO SCH ×2 (09:45→17:18)
[2021-01-31] MEDS: LORATADINE 10 MG TABLET PO SCH (09:48)
[2021-01-31] MEDS: DOCUSATE SODIUM 100 MG CAPSULE PO SCH ×2 (09:48→21:26)
[2021-01-31] MEDS: SEVELAMER CARBONATE 800 MG TABLET PO SCH ×3 (09:48→17:18)
[2021-01-31] MEDS: DUTASTERIDE 0.5 MG CAPSULE PO SCH (09:48)
[2021-01-31] MEDS: FLUTICASONE/SALMETEROL 250-50 DISKUS 14 DOSE INH SCH (09:48)
[2021-01-31] MEDS: PANTOPRAZOLE 40 MG TABLET PO SCH ×2 (11:26→21:26)
[2021-01-31] MEDS: LIDOCAINE 5% PATCH TRANSDERM SCH (21:28)
[2021-02-01] MEDS: ALBUTEROL 2.5 MG/3 ML NEB RESP TX SCH ×4 (00:16→20:00)
[2021-02-01] MEDS: methylPREDNISolone SOD SUC 40 MG/1 ML VIAL IV SCH ×3 (01:33→20:35)
[2021-02-01] MEDS: cloNIDine 0.1 MG TABLET PO PRN (04:51)
[2021-02-01 06:06] LABS: Hematocrit 27.4 VOL% (42.0-52.0); Hemoglobin 8.8 GM/DL (14.0-18.0); Immature Granulocytes % 0.7 %; Immature Granulocytes Absolute 0.06 #; Lymphocytes # 0.3 10*3/uL (1.4-4.0); Mean Corpuscular HGB Conc 32.1 GM/DL (32-36); Mean Corpuscular Volume 93.5 FL (87-102); Mean Platelet Volume 10.5 FL (9.6-12.0); Monocytes % 6.9 % (1.7-12.7); Neutrophils % 88.4 % (38.7-73.9); Platelet Count 176 T/CUMM (130-400); Red Blood Count 2.93 MC/CUMM (3.8-5.5); Red Cell Distribution Width 15.7 % (9.3-17.3); White Blood Count 8.5 T/CUMM (4-12)
[2021-02-01 06:09] LABS: Calcium 9.1 MG/DL (8.5-10.1); Osmolality,Calculated 276.5 MOS/KG (273-304); Potassium 4.2 MMOL/L (3.5-5.1)
[2021-02-01 06:53] LABS: Hypochromasia 1+; Lymphocytes 6 % (20-55); Microcytosis 1+; Platelet Estimate Adequate; Segmented Neutrophils 90 % (50-85); Total Cells Counted 100
[2021-02-01] MEDS: INSULIN REGULAR 100 UNIT/ML SUBCUT SCH ×4 (10:55→20:36)
[2021-02-01] MEDS: BACILLUS COAGULANS CAPLET PO SCH (10:58)
[2021-02-01] MEDS: DUTASTERIDE 0.5 MG CAPSULE PO SCH (10:58)
[2021-02-01] MEDS: MULTIVITAMIN (BEROCCA) TABLET PO SCH (10:58)
[2021-02-01] MEDS: carvediloL 6.25 MG TABLET PO SCH ×2 (10:59→16:35)
[2021-02-01] MEDS: BENZONATATE 100 MG CAPSULE PO SCH ×3 (11:00→20:33)
[2021-02-01] MEDS: LORATADINE 10 MG TABLET PO SCH (11:00)
[2021-02-01] MEDS: SEVELAMER CARBONATE 800 MG TABLET PO SCH ×3 (11:01→16:35)
[2021-02-01] MEDS: FLUTICASONE/SALMETEROL 250-50 DISKUS 14 DOSE INH SCH (11:01)
[2021-02-01] MEDS: PANTOPRAZOLE 40 MG TABLET PO SCH ×2 (11:02→20:36)
[2021-02-01] MEDS: cefTRIAXone 1,000 MG in SODIUM CHLORIDE 0.9% 100 ML IV SCH (11:02)
[2021-02-01] MEDS: DOCUSATE SODIUM 100 MG CAPSULE PO SCH ×2 (11:02→20:33)
[2021-02-01] MEDS: ALUMINUM/MAGNES/SIMETH MAX STR 30 ML UDCUP PO PRN (20:33)
[2021-02-01] MEDS: LIDOCAINE 5% PATCH TRANSDERM SCH (20:35)
[2021-02-02] MEDS: ALBUTEROL 2.5 MG/3 ML NEB RESP TX SCH ×4 (00:40→22:00)
[2021-02-02] MEDS: FLUTICASONE/SALMETEROL 250-50 DISKUS 14 DOSE INH SCH (08:30)
[2021-02-02] MEDS: methylPREDNISolone SOD SUC 40 MG/1 ML VIAL IV SCH (08:51)
[2021-02-02] MEDS: DUTASTERIDE 0.5 MG CAPSULE PO SCH (08:53)
[2021-02-02] MEDS: BACILLUS COAGULANS CAPLET PO SCH (08:53)
[2021-02-02] MEDS: PANTOPRAZOLE 40 MG TABLET PO SCH ×2 (08:53→22:08)
[2021-02-02] MEDS: MULTIVITAMIN (BEROCCA) TABLET PO SCH (08:53)
[2021-02-02] MEDS: BENZONATATE 100 MG CAPSULE PO SCH ×3 (08:54→22:08)
[2021-02-02] MEDS: DOCUSATE SODIUM 100 MG CAPSULE PO SCH ×2 (08:54→22:08)
[2021-02-02] MEDS: SEVELAMER CARBONATE 800 MG TABLET PO SCH ×3 (08:54→17:06)
[2021-02-02] MEDS: carvediloL 6.25 MG TABLET PO SCH ×2 (08:54→17:06)
[2021-02-02] MEDS: LORATADINE 10 MG TABLET PO SCH (08:54)
[2021-02-02] MEDS: INSULIN REGULAR 100 UNIT/ML SUBCUT SCH ×4 (08:55→22:08)
[2021-02-02] MEDS: cefTRIAXone 1,000 MG in SODIUM CHLORIDE 0.9% 100 ML IV SCH (13:57)
[2021-02-02] MEDS: ALUMINUM/MAGNES/SIMETH MAX STR 30 ML UDCUP PO PRN ×2 (17:10→22:14)
[2021-02-02] MEDS: LIDOCAINE 5% PATCH TRANSDERM SCH (22:09)
[2021-02-03] MEDS: ALBUTEROL 2.5 MG/3 ML NEB RESP TX SCH ×4 (02:51→20:35)
[2021-02-03] MEDS: DUTASTERIDE 0.5 MG CAPSULE PO SCH (08:10)
[2021-02-03] MEDS: MULTIVITAMIN (BEROCCA) TABLET PO SCH (08:10)
[2021-02-03] MEDS: SEVELAMER CARBONATE 800 MG TABLET PO SCH ×3 (08:10→16:39)
[2021-02-03] MEDS: BACILLUS COAGULANS CAPLET PO SCH (08:10)
[2021-02-03] MEDS: carvediloL 6.25 MG TABLET PO SCH ×2 (08:11→16:39)
[2021-02-03] MEDS: DOCUSATE SODIUM 100 MG CAPSULE PO SCH ×2 (08:11→21:33)
[2021-02-03] MEDS: BENZONATATE 100 MG CAPSULE PO SCH ×3 (08:11→21:33)
[2021-02-03] MEDS: PANTOPRAZOLE 40 MG TABLET PO SCH ×2 (08:11→21:33)
[2021-02-03] MEDS: LORATADINE 10 MG TABLET PO SCH (08:11)
[2021-02-03] MEDS: INSULIN REGULAR 100 UNIT/ML SUBCUT SCH ×4 (08:12→23:30)
[2021-02-03] MEDS: LIDOCAINE 5% PATCH TRANSDERM SCH ×2 (08:14→21:33)
[2021-02-03] MEDS: cefTRIAXone 1,000 MG in SODIUM CHLORIDE 0.9% 100 ML IV SCH (08:20)
[2021-02-03] MEDS: FLUTICASONE/SALMETEROL 250-50 DISKUS 14 DOSE INH SCH (08:34)
[2021-02-03] MEDS ORDERED: methylPREDNISolone SOD SUC 40 MG/1 ML VIAL IV SCH (09:00)
[2021-02-03 10:13] LABS: Eosinophils # 0.1 10*3/uL (0.0-0.87); Eosinophils % 0.9 % (0.00-10.9); Hematocrit 28.4 VOL% (42.0-52.0); Hemoglobin 8.8 GM/DL (14.0-18.0); Immature Granulocytes % 0.7 %; Immature Granulocytes Absolute 0.09 #; Lymphocytes # 0.9 10*3/uL (1.4-4.0); Lymphocytes % 7.5 % (21.2-54.2); Mean Corpuscular Volume 95.3 FL (87-102); Mean Platelet Volume 11.2 FL (9.6-12.0); Monocytes % 7.8 % (1.7-12.7); Neutrophils % 83.1 % (38.7-73.9); Platelet Count 198 T/CUMM (130-400); Red Blood Count 2.98 MC/CUMM (3.8-5.5); Red Cell Distribution Width 15.4 % (9.3-17.3); White Blood Count 12.1 T/CUMM (4-12)
[2021-02-03 10:35] LABS: Calcium 8.7 MG/DL (8.5-10.1); Osmolality,Calculated 279.7 MOS/KG (273-304); Potassium 3.9 MMOL/L (3.5-5.1)
[2021-02-04] MEDS: MELATONIN 3 MG TABLET PO PRN (00:40)
[2021-02-04] MEDS: ALBUTEROL 2.5 MG/3 ML NEB RESP TX SCH ×4 (01:03→20:47)
[2021-02-04] MEDS: BENZONATATE 100 MG CAPSULE PO SCH ×3 (09:06→20:44)
[2021-02-04] MEDS: SEVELAMER CARBONATE 800 MG TABLET PO SCH ×3 (09:06→16:40)
[2021-02-04] MEDS: cefTRIAXone 1,000 MG in SODIUM CHLORIDE 0.9% 100 ML IV SCH (09:06)
[2021-02-04] MEDS: DOCUSATE SODIUM 100 MG CAPSULE PO SCH ×2 (09:07→20:44)
[2021-02-04] MEDS: LORATADINE 10 MG TABLET PO SCH (09:07)
[2021-02-04] MEDS: PANTOPRAZOLE 40 MG TABLET PO SCH ×2 (09:07→20:44)
[2021-02-04] MEDS: predniSONE 20 MG TABLET PO SCH (09:07)
[2021-02-04] MEDS: carvediloL 6.25 MG TABLET PO SCH ×2 (09:07→16:44)
[2021-02-04] MEDS: DUTASTERIDE 0.5 MG CAPSULE PO SCH (09:07)
[2021-02-04] MEDS: MULTIVITAMIN (BEROCCA) TABLET PO SCH (09:07)
[2021-02-04] MEDS: BACILLUS COAGULANS CAPLET PO SCH (09:07)
[2021-02-04] MEDS: FLUTICASONE/SALMETEROL 250-50 DISKUS 14 DOSE INH SCH (09:08)
[2021-02-04] MEDS: INSULIN REGULAR 100 UNIT/ML SUBCUT SCH ×4 (09:51→20:43)
[2021-02-04] MEDS: HYDROcodone/CHLORPHENIRAMINE ER 5 ML UDCUP PO PRN (19:22)
[2021-02-04] MEDS: LIDOCAINE 5% PATCH TRANSDERM SCH (20:45)
[2021-02-05] MEDS: ACETAMINOPHEN 325 MG TABLET PO PRN (01:40)
[2021-02-05] MEDS: ALBUTEROL 2.5 MG/3 ML NEB RESP TX SCH ×4 (02:07→21:38)
[2021-02-05] MEDS: HYDROcodone/CHLORPHENIRAMINE ER 5 ML UDCUP PO PRN ×2 (04:47→13:38)
[2021-02-05 05:19] LABS: Basophils % 0.1 % (0.0-0.8); Eosinophils # 0.1 10*3/uL (0.0-0.87); Eosinophils % 0.9 % (0.00-10.9); Hematocrit 27.1 VOL% (42.0-52.0); Hemoglobin 8.6 GM/DL (14.0-18.0); Immature Granulocytes % 1.3 %; Immature Granulocytes Absolute 0.17 #; Lymphocytes # 1.2 10*3/uL (1.4-4.0); Mean Corpuscular HGB Conc 31.7 GM/DL (32-36); Mean Corpuscular Volume 94.8 FL (87-102); Mean Platelet Volume 11.3 FL (9.6-12.0); Monocytes % 10.9 % (1.7-12.7); Neutrophils % 77.8 % (38.7-73.9); Platelet Count 197 T/CUMM (130-400); Red Blood Count 2.86 MC/CUMM (3.8-5.5); White Blood Count 12.8 T/CUMM (4-12)
[2021-02-05 05:53] LABS: Albumin 2.3 G/DL (3.4-5.0); Bilirubin,Total 0.5 MG/DL (0.20-1.00); Calcium 8.1 MG/DL (8.5-10.1); Osmolality,Calculated 272.7 MOS/KG (273-304); Potassium 3.9 MMOL/L (3.5-5.1); Total Protein 5.6 G/DL (6.4-8.2)
[2021-02-05] MEDS: INSULIN REGULAR 100 UNIT/ML SUBCUT SCH ×4 (07:36→21:29)
[2021-02-05] MEDS: cefTRIAXone 1,000 MG in SODIUM CHLORIDE 0.9% 100 ML IV SCH (08:31)
[2021-02-05] MEDS: DUTASTERIDE 0.5 MG CAPSULE PO SCH (08:32)
[2021-02-05] MEDS: PANTOPRAZOLE 40 MG TABLET PO SCH ×2 (08:32→21:30)
[2021-02-05] MEDS: predniSONE 20 MG TABLET PO SCH (08:32)
[2021-02-05] MEDS: BENZONATATE 100 MG CAPSULE PO SCH ×3 (08:32→21:30)
[2021-02-05] MEDS: BACILLUS COAGULANS CAPLET PO SCH (08:32)
[2021-02-05] MEDS: SEVELAMER CARBONATE 800 MG TABLET PO SCH ×3 (08:33→16:08)
[2021-02-05] MEDS: carvediloL 6.25 MG TABLET PO SCH ×2 (08:33→16:08)
[2021-02-05] MEDS: LORATADINE 10 MG TABLET PO SCH (08:33)
[2021-02-05] MEDS: FLUTICASONE/SALMETEROL 250-50 DISKUS 14 DOSE INH SCH (08:33)
[2021-02-05] MEDS: MULTIVITAMIN (BEROCCA) TABLET PO SCH (08:33)
[2021-02-05] MEDS: DOCUSATE SODIUM 100 MG CAPSULE PO SCH ×2 (08:33→21:29)
[2021-02-05] MEDS: LIDOCAINE 5% PATCH TRANSDERM SCH (21:29)
[2021-02-06] MEDS: HYDROcodone/CHLORPHENIRAMINE ER 5 ML UDCUP PO PRN ×3 (00:56→21:20)
[2021-02-06] MEDS: ALBUTEROL 2.5 MG/3 ML NEB RESP TX SCH ×4 (01:42→20:35)
[2021-02-06 06:16] LABS: Alanine Aminotransferase 19 U/L (16-61); Albumin 2.4 G/DL (3.4-5.0); Alkaline Phosphatase 75 U/L (45-117); Aspartate Amino Transferase 18 U/L (0-37); Bilirubin,Total < 0.39 MG/DL (0.20-1.00); Blood Urea Nitrogen 56 MG/DL (7-18); Calcium 8.3 MG/DL (8.5-10.1); Carbon Dioxide 31 MMOL/L (21-32); Estimated Glom Filtration Rate 10 ML/MIN; Osmolality,Calculated 269.1 MOS/KG (273-304); Potassium 3.8 MMOL/L (3.5-5.1); Sodium 128 MMOL/L (136-145); Total Protein 5.9 G/DL (6.4-8.2)
[2021-02-06 06:17] LABS: Glucose 39 MG/DL (74-106)
[2021-02-06 10:43] LABS: Eosinophils,Pleural Fluid 1 %; Lymphocytes,Pleural Fluid 24 %; Monocytes,Pleural Fluid 8 %; Neutrophils,Pleural Fluid 67 %; RBC,Pleural Fluid 1581 T/CUMM
[2021-02-06] MEDS: cefTRIAXone 1,000 MG in SODIUM CHLORIDE 0.9% 100 ML IV SCH (10:50)
[2021-02-06] MEDS: LORATADINE 10 MG TABLET PO SCH (10:54)
[2021-02-06] MEDS: BACILLUS COAGULANS CAPLET PO SCH (10:54)
[2021-02-06] MEDS: DUTASTERIDE 0.5 MG CAPSULE PO SCH (10:54)
[2021-02-06] MEDS: BENZONATATE 100 MG CAPSULE PO SCH ×3 (10:55→21:16)
[2021-02-06] MEDS: SEVELAMER CARBONATE 800 MG TABLET PO SCH ×3 (10:55→17:38)
[2021-02-06] MEDS: DOCUSATE SODIUM 100 MG CAPSULE PO SCH ×2 (10:55→21:16)
[2021-02-06] MEDS: MULTIVITAMIN (BEROCCA) TABLET PO SCH (10:56)
[2021-02-06] MEDS: carvediloL 6.25 MG TABLET PO SCH ×2 (10:56→17:28)
[2021-02-06] MEDS: INSULIN REGULAR 100 UNIT/ML SUBCUT SCH ×4 (10:56→21:17)
[2021-02-06] MEDS: predniSONE 20 MG TABLET PO SCH (10:56)
[2021-02-06] MEDS: FLUTICASONE/SALMETEROL 250-50 DISKUS 14 DOSE INH SCH (10:56)
[2021-02-06 11:02] LABS: Amylase,Pleural Fluid 29 U/L; Glucose,Pleural Fluid 117 MG/DL
[2021-02-06] MEDS: PANTOPRAZOLE 40 MG TABLET PO SCH ×2 (11:55→21:18)
[2021-02-06] MEDS: ACETAMINOPHEN 325 MG TABLET PO PRN ×2 (12:35→21:21)
[2021-02-06] MEDS: ERTAPENEM 1,000 MG VIAL IM SCH (17:55)
[2021-02-06] MEDS: LIDOCAINE 5% PATCH TRANSDERM SCH (21:17)
[2021-02-06] MEDS: ALUMINUM/MAGNES/SIMETH MAX STR 30 ML UDCUP PO PRN (21:18)
[2021-02-07] MEDS: ALBUTEROL 2.5 MG/3 ML NEB RESP TX SCH ×4 (00:35→20:25)
[2021-02-07] MEDS: BACILLUS COAGULANS CAPLET PO SCH (10:27)
[2021-02-07] MEDS: DUTASTERIDE 0.5 MG CAPSULE PO SCH (10:27)
[2021-02-07] MEDS: MULTIVITAMIN (BEROCCA) TABLET PO SCH (10:27)
[2021-02-07] MEDS: SEVELAMER CARBONATE 800 MG TABLET PO SCH ×3 (10:27→18:06)
[2021-02-07] MEDS: BENZONATATE 100 MG CAPSULE PO SCH ×3 (10:27→21:03)
[2021-02-07] MEDS: LORATADINE 10 MG TABLET PO SCH (10:28)
[2021-02-07] MEDS: INSULIN REGULAR 100 UNIT/ML SUBCUT SCH ×4 (10:28→21:04)
[2021-02-07] MEDS: FLUTICASONE/SALMETEROL 250-50 DISKUS 14 DOSE INH SCH (10:28)
[2021-02-07] MEDS: PANTOPRAZOLE 40 MG TABLET PO SCH ×2 (10:28→21:09)
[2021-02-07] MEDS: carvediloL 6.25 MG TABLET PO SCH ×2 (10:28→18:07)
[2021-02-07] MEDS: DOCUSATE SODIUM 100 MG CAPSULE PO SCH ×2 (10:29→21:03)
[2021-02-07 16:46] LABS: CEA, Pleural Fluid 1.9 ng/mL
[2021-02-07] MEDS: ERTAPENEM 1,000 MG VIAL IM SCH (18:07)
[2021-02-07] MEDS: HYDROcodone/CHLORPHENIRAMINE ER 5 ML UDCUP PO PRN (18:21)
[2021-02-07] MEDS: LIDOCAINE 5% PATCH TRANSDERM SCH (21:06)
[2021-02-07] MEDS: ACETAMINOPHEN 325 MG TABLET PO PRN (21:12)
[2021-02-08] MEDS: ALBUTEROL 2.5 MG/3 ML NEB RESP TX SCH ×4 (02:55→19:54)
[2021-02-08] MEDS: INSULIN REGULAR 100 UNIT/ML SUBCUT SCH ×4 (07:54→21:01)
[2021-02-08] MEDS: SEVELAMER CARBONATE 800 MG TABLET PO SCH ×3 (09:41→17:12)
[2021-02-08] MEDS: MULTIVITAMIN (BEROCCA) TABLET PO SCH (09:41)
[2021-02-08] MEDS: PANTOPRAZOLE 40 MG TABLET PO SCH ×2 (09:41→20:59)
[2021-02-08] MEDS: DUTASTERIDE 0.5 MG CAPSULE PO SCH (09:41)
[2021-02-08] MEDS: LORATADINE 10 MG TABLET PO SCH (09:42)
[2021-02-08] MEDS: carvediloL 6.25 MG TABLET PO SCH ×2 (09:42→17:13)
[2021-02-08] MEDS: DOCUSATE SODIUM 100 MG CAPSULE PO SCH ×2 (09:42→20:59)
[2021-02-08] MEDS: BACILLUS COAGULANS CAPLET PO SCH (09:42)
[2021-02-08] MEDS: BENZONATATE 100 MG CAPSULE PO SCH ×3 (09:42→20:59)
[2021-02-08] MEDS: FLUTICASONE/SALMETEROL 250-50 DISKUS 14 DOSE INH SCH (09:44)
[2021-02-08 14:31] LABS: Basophils % 0.1 % (0.0-0.8); Eosinophils # 0.2 10*3/uL (0.0-0.87); Eosinophils % 1.7 % (0.00-10.9); Hematocrit 28.6 VOL% (42.0-52.0); Hemoglobin 9.4 GM/DL (14.0-18.0); Immature Granulocytes % 0.8 %; Immature Granulocytes Absolute 0.11 #; Lymphocytes # 0.9 10*3/uL (1.4-4.0); Lymphocytes % 6.3 % (21.2-54.2); Mean Corpuscular HGB Conc 32.9 GM/DL (32-36); Mean Corpuscular Volume 91.4 FL (87-102); Mean Platelet Volume 10.7 FL (9.6-12.0); Monocytes % 15.7 % (1.7-12.7); Neutrophils % 75.4 % (38.7-73.9); Platelet Count 211 T/CUMM (130-400); Red Blood Count 3.13 MC/CUMM (3.8-5.5); Red Cell Distribution Width 15.2 % (9.3-17.3); White Blood Count 13.6 T/CUMM (4-12)
[2021-02-08 14:41] LABS: Osmolality,Calculated 269.6 MOS/KG (273-304)
[2021-02-08] MEDS: HYDROCORTISONE 100 MG VIAL IV SCH (15:18)
[2021-02-08] MEDS: MELATONIN 3 MG TABLET PO PRN (20:59)
[2021-02-08] MEDS: LIDOCAINE 5% PATCH TRANSDERM SCH (21:00)
[2021-02-08] MEDS: ERTAPENEM 1,000 MG VIAL IM SCH (21:03)
[2021-02-08] MEDS: HYDROcodone/CHLORPHENIRAMINE ER 5 ML UDCUP PO PRN (21:12)
[2021-02-09] MEDS: ALBUTEROL 2.5 MG/3 ML NEB RESP TX SCH ×2 (00:06→07:25)
[2021-02-09] MEDS: HYDROCORTISONE 100 MG VIAL IV SCH ×2 (01:19→09:00)
[2021-02-09] MEDS ORDERED: predniSONE 10 MG TABLET PO SCH (09:00)
[2021-02-09] MEDS: MULTIVITAMIN (BEROCCA) TABLET PO SCH (09:02)
[2021-02-09] MEDS: INSULIN REGULAR 100 UNIT/ML SUBCUT SCH ×2 (09:02→13:21)
[2021-02-09] MEDS: BENZONATATE 100 MG CAPSULE PO SCH (09:02)
[2021-02-09] MEDS: LORATADINE 10 MG TABLET PO SCH (09:03)
[2021-02-09] MEDS: DOCUSATE SODIUM 100 MG CAPSULE PO SCH (09:03)
[2021-02-09] MEDS: PANTOPRAZOLE 40 MG TABLET PO SCH (09:07)
[2021-02-09] MEDS: DUTASTERIDE 0.5 MG CAPSULE PO SCH (09:07)
[2021-02-09] MEDS: SEVELAMER CARBONATE 800 MG TABLET PO SCH ×2 (09:07→13:21)
[2021-02-09] MEDS: carvediloL 6.25 MG TABLET PO SCH (09:07)
[2021-02-09] MEDS: BACILLUS COAGULANS CAPLET PO SCH (09:08)
[2021-02-09] MEDS: FLUTICASONE/SALMETEROL 250-50 DISKUS 14 DOSE INH SCH (09:08)
[2021-02-09 09:15] LABS: Basophils % 0.1 % (0.0-0.8); Eosinophils % 0.1 % (0.00-10.9); Hematocrit 28.5 VOL% (42.0-52.0); Hemoglobin 9.4 GM/DL (14.0-18.0); Immature Granulocytes % 0.6 %; Immature Granulocytes Absolute 0.08 #; Lymphocytes # 0.4 10*3/uL (1.4-4.0); Lymphocytes % 3.1 % (21.2-54.2); Mean Corpuscular Volume 91.3 FL (87-102); Mean Platelet Volume 10.7 FL (9.6-12.0); Monocytes % 5.8 % (1.7-12.7); Neutrophils % 90.3 % (38.7-73.9); Platelet Count 214 T/CUMM (130-400); Red Blood Count 3.12 MC/CUMM (3.8-5.5); Red Cell Distribution Width 15.2 % (9.3-17.3)
[2021-02-09 09:40] LABS: Hypochromasia 1+; Lymphocytes 3 % (20-55); Microcytosis 1+; Ovalocytes Slight; Platelet Estimate Adequate; Segmented Neutrophils 89 % (50-85); Total Cells Counted 100
[2021-02-09 09:43] LABS: Calcium 8.3 MG/DL (8.5-10.1); Osmolality,Calculated 271.9 MOS/KG (273-304); Potassium 3.8 MMOL/L (3.5-5.1)
[2021-02-09 12:06] VITALS: BP 117/42
[2021-02-09 18:04] LABS: Adenosine Deaminase Pleural Fl 4 U/L (0-30)
[2021-02-09] MEDS ORDERED: ERTAPENEM 1,000 MG in SODIUM CHLORIDE 0.9% 100 ML IV SCH (21:00)
== END 2021-02-09 13:48 | DRG 177 ==
LOC: N.ED 14:04 → N.EDINP 16:25 → N.5E 23:20
PROVIDERS: ADMIT Internal Medicine; ATTEND Internal Medicine

== ENCOUNTER 2021-02-14 13:31 | Inpatient (IN) ==
[2021-02-14] MEDS ORDERED: ACETAMINOPHEN 325 MG TABLET PO PRN (14:29)
[2021-02-14] MEDS ORDERED: ONDANSETRON 4 MG/2 ML VIAL IV PRN (14:29)
[2021-02-14] MEDS ORDERED: GLUCAGON 1 MG VIAL IM PRN (14:29)
[2021-02-14] MEDS ORDERED: SODIUM CHLORIDE 0.9% 1,000 ML IV PRN (16:55)
[2021-02-14] MEDS ORDERED: ALBUTEROL/IPRATROPIUM 3 ML NEB RESP TX PRN (16:57)
[2021-02-14] MEDS: ALBUTEROL/IPRATROPIUM 3 ML NEB RESP TX SCH (20:58)
[2021-02-14] MEDS ORDERED: ENOXAPARIN 30 MG/0.3 ML SYRINGE SUBCUT SCH (23:00)
[2021-02-14] MEDS: DOCUSATE SODIUM 100 MG CAPSULE PO SCH (23:00)
[2021-02-15] MEDS: INSULIN LISPRO 100 UNIT/ML SUBCUT SCH ×6 (00:26→21:58)
[2021-02-15] MEDS: HYDROCORTISONE 100 MG VIAL IV SCH ×3 (00:28→10:01)
[2021-02-15] MEDS ORDERED: cloNIDine 0.1 MG TABLET PO PRN ×2 (00:31→09:36)
[2021-02-15] MEDS ORDERED: HALOPERIDOL 5 MG/ML AMP IM PRN (00:32)
[2021-02-15] MEDS: ALBUTEROL/IPRATROPIUM 3 ML NEB RESP TX SCH ×4 (01:01→19:55)
[2021-02-15 06:49] LABS: Bacteria,Urine Occasional /HPF (Few); Bilirubin,Urine Negative (Negative); Blood, Urine Negative (Negative); Glucose,Urine (UA) 150 mg/dL (Negative); Ketones,Urine Negative (Negative); Nitrite,Urine Negative (Negative); Protein,Urine 100 MG/DL; RBC,Urine <1 /HPF (0-4); Urine Appearance CLEAR (Clear); Urine Color Yellow (Yellow); Urine Urobilinogen < 2.0 EU/DL (<2.0)
[2021-02-15 07:17] LABS: Calcium 8.3 MG/DL (8.5-10.1); Osmolality,Calculated 276.1 MOS/KG (273-304); Potassium 4.3 MMOL/L (3.5-5.1)
[2021-02-15 08:05] LABS: Eosinophils % 0.4 % (0.00-10.9); Hemoglobin 8.5 GM/DL (14.0-18.0); Immature Granulocytes % 0.7 %; Immature Granulocytes Absolute 0.06 #; Lymphocytes # 0.8 10*3/uL (1.4-4.0); Mean Corpuscular HGB Conc 32.7 GM/DL (32-36); Mean Corpuscular Volume 92.5 FL (87-102); Mean Platelet Volume 9.6 FL (9.6-12.0); Neutrophils % 82.9 % (38.7-73.9); Platelet Count 155 T/CUMM (130-400); Red Blood Count 2.81 MC/CUMM (3.8-5.5); Red Cell Distribution Width 15.3 % (9.3-17.3); White Blood Count 8.9 T/CUMM (4-12)
[2021-02-15] MEDS ORDERED: PANTOPRAZOLE 40 MG TABLET PO SCH (09:00)
[2021-02-15] MEDS ORDERED: ALBUTEROL 2.5 MG/3 ML NEB RESP TX PRN (09:36)
[2021-02-15] MEDS ORDERED: MELATONIN 3 MG TABLET PO PRN (09:36)
[2021-02-15] MEDS: DOCUSATE SODIUM 100 MG CAPSULE PO SCH ×2 (09:59→21:57)
[2021-02-15] MEDS: QUEtiapine 25 MG TABLET PO SCH ×2 (10:21→21:59)
[2021-02-15 10:47] LABS: Basophils % 0.2 % (0.0-0.8); Eosinophils # 0.1 10*3/uL (0.0-0.87); Eosinophils % 0.7 % (0.00-10.9); Hematocrit 23.5 VOL% (42.0-52.0); Hemoglobin 7.7 GM/DL (14.0-18.0); Immature Granulocytes % 0.5 %; Immature Granulocytes Absolute 0.05 #; Lymphocytes % 9.8 % (21.2-54.2); Mean Corpuscular HGB Conc 32.8 GM/DL (32-36); Mean Corpuscular Volume 92.2 FL (87-102); Mean Platelet Volume 9.4 FL (9.6-12.0); Monocytes % 6.7 % (1.7-12.7); Neutrophils % 82.1 % (38.7-73.9); Platelet Count 151 T/CUMM (130-400); Red Blood Count 2.55 MC/CUMM (3.8-5.5); Red Cell Distribution Width 15.3 % (9.3-17.3); White Blood Count 9.8 T/CUMM (4-12)
[2021-02-15] MEDS ORDERED: LORazepam 2 MG/1 ML VIAL IV ONE (13:48)
[2021-02-15 14:16] LABS: Appearance,CSF Clear; Lymphocytes,CSF 46 %; Monocytes,CSF 54 %; Red Blood Cell,CSF < 1 C/CUMM; White Blood Cell,CSF 28 C/CUMM
[2021-02-15] MEDS: ALBUTEROL 2.5 MG/3 ML NEB RESP TX SCH ×2 (15:06→23:28)
[2021-02-15] MEDS: SEVELAMER CARBONATE 800 MG TABLET PO SCH ×2 (18:17→21:57)
[2021-02-15] MEDS: POLYETHYLENE GLYCOL POWDER 17 GM PACK PO SCH (18:17)
[2021-02-15] MEDS: ENOXAPARIN 30 MG/0.3 ML SYRINGE SUBCUT SCH (18:19)
[2021-02-15] MEDS: ACYCLOVIR INJ 350 MG in SODIUM CHLORIDE 0.9% 100 ML IV SCH (18:21)
[2021-02-15] MEDS: VANCOMYCIN INJ 1,000 MG in SODIUM CHLORIDE 0.9% 250 ML IV SCH (19:30)
[2021-02-15] MEDS: cefTRIAXone 2,000 MG in SODIUM CHLORIDE 0.9% 100 ML IV SCH (21:58)
[2021-02-15] MEDS: carvediloL 6.25 MG TABLET PO SCH (21:58)
[2021-02-15] MEDS: predniSONE 10 MG TABLET PO SCH (21:58)
[2021-02-15] MEDS: PANTOPRAZOLE 40 MG TABLET PO SCH (21:58)
[2021-02-16] MEDS: ALBUTEROL/IPRATROPIUM 3 ML NEB RESP TX SCH ×4 (01:00→19:35)
[2021-02-16] MEDS: ALBUTEROL 2.5 MG/3 ML NEB RESP TX SCH ×4 (04:37→20:40)
[2021-02-16 07:42] LABS: Basophils % 0.1 % (0.0-0.8); Eosinophils # 0.1 10*3/uL (0.0-0.87); Eosinophils % 0.6 % (0.00-10.9); Hematocrit 31.3 VOL% (42.0-52.0); Hemoglobin 10.3 GM/DL (14.0-18.0); Immature Granulocytes % 0.4 %; Immature Granulocytes Absolute 0.04 #; Lymphocytes # 0.6 10*3/uL (1.4-4.0); Lymphocytes % 6.2 % (21.2-54.2); Mean Corpuscular HGB Conc 32.9 GM/DL (32-36); Mean Corpuscular Volume 89.7 FL (87-102); Mean Platelet Volume 10.4 FL (9.6-12.0); Monocytes % 6.4 % (1.7-12.7); Neutrophils % 86.3 % (38.7-73.9); Platelet Count 139 T/CUMM (130-400); Red Blood Count 3.49 MC/CUMM (3.8-5.5); Red Cell Distribution Width 16.3 % (9.3-17.3); White Blood Count 9.5 T/CUMM (4-12)
[2021-02-16] MEDS: INSULIN LISPRO 100 UNIT/ML SUBCUT SCH ×4 (07:53→21:24)
[2021-02-16] MEDS ORDERED: LORazepam 2 MG/1 ML VIAL IV ONE (08:00)
[2021-02-16 08:03] LABS: Calcium 8.4 MG/DL (8.5-10.1); Osmolality,Calculated 277.1 MOS/KG (273-304); Potassium 3.9 MMOL/L (3.5-5.1)
[2021-02-16] MEDS: POLYETHYLENE GLYCOL POWDER 17 GM PACK PO SCH (08:29)
[2021-02-16] MEDS: QUEtiapine 25 MG TABLET PO SCH ×2 (08:29→21:08)
[2021-02-16] MEDS: SEVELAMER CARBONATE 800 MG TABLET PO SCH ×3 (08:29→21:07)
[2021-02-16] MEDS: DOCUSATE SODIUM 100 MG CAPSULE PO SCH ×2 (08:29→21:07)
[2021-02-16] MEDS: predniSONE 10 MG TABLET PO SCH ×2 (08:30→21:08)
[2021-02-16] MEDS: LORATADINE 10 MG TABLET PO SCH (08:30)
[2021-02-16] MEDS: carvediloL 6.25 MG TABLET PO SCH ×2 (08:30→21:08)
[2021-02-16] MEDS: PANTOPRAZOLE 40 MG TABLET PO SCH ×2 (08:30→21:08)
[2021-02-16] MEDS: MULTIVITAMIN (BEROCCA) TABLET PO SCH (08:30)
[2021-02-16] MEDS: cefTRIAXone 2,000 MG in SODIUM CHLORIDE 0.9% 100 ML IV SCH ×2 (08:39→21:14)
[2021-02-16] MEDS: ENOXAPARIN 30 MG/0.3 ML SYRINGE SUBCUT SCH (11:32)
[2021-02-16] MEDS: HALOPERIDOL 5 MG/ML AMP IM PRN ×2 (11:35→21:37)
[2021-02-16] MEDS ORDERED: levETIRAcetam 500 MG TABLET PO ONE (16:00)
[2021-02-16] MEDS: ACYCLOVIR INJ 350 MG in SODIUM CHLORIDE 0.9% 100 ML IV SCH (17:14)
[2021-02-17] MEDS: ALBUTEROL/IPRATROPIUM 3 ML NEB RESP TX SCH ×4 (01:00→19:40)
[2021-02-17 05:08] LABS: Basophils % 0.3 % (0.0-0.8); Eosinophils # 0.1 10*3/uL (0.0-0.87); Hematocrit 32.3 VOL% (42.0-52.0); Hemoglobin 10.6 GM/DL (14.0-18.0); Immature Granulocytes % 0.7 %; Immature Granulocytes Absolute 0.05 #; Lymphocytes # 0.5 10*3/uL (1.4-4.0); Lymphocytes % 6.6 % (21.2-54.2); Mean Corpuscular HGB Conc 32.8 GM/DL (32-36); Mean Platelet Volume 9.9 FL (9.6-12.0); Monocytes % 4.8 % (1.7-12.7); Neutrophils % 86.6 % (38.7-73.9); Platelet Count 116 T/CUMM (130-400); Red Blood Count 3.55 MC/CUMM (3.8-5.5); White Blood Count 7.7 T/CUMM (4-12)
[2021-02-17 05:30] LABS: Calcium 8.5 MG/DL (8.5-10.1); Osmolality,Calculated 277.4 MOS/KG (273-304); Potassium 4.2 MMOL/L (3.5-5.1)
[2021-02-17] MEDS: INSULIN LISPRO 100 UNIT/ML SUBCUT SCH ×4 (08:45→20:35)
[2021-02-17] MEDS: MULTIVITAMIN (BEROCCA) TABLET PO SCH (12:27)
[2021-02-17] MEDS: cefTRIAXone 2,000 MG in SODIUM CHLORIDE 0.9% 100 ML IV SCH ×2 (12:27→20:59)
[2021-02-17] MEDS: predniSONE 10 MG TABLET PO SCH ×2 (12:28→20:35)
[2021-02-17] MEDS: levETIRAcetam 250 MG TABLET PO SCH ×2 (12:28→16:11)
[2021-02-17] MEDS: DOCUSATE SODIUM 100 MG CAPSULE PO SCH ×2 (12:28→20:35)
[2021-02-17] MEDS: carvediloL 6.25 MG TABLET PO SCH ×2 (12:28→20:35)
[2021-02-17] MEDS: ENOXAPARIN 30 MG/0.3 ML SYRINGE SUBCUT SCH (12:28)
[2021-02-17] MEDS: LORATADINE 10 MG TABLET PO SCH (12:28)
[2021-02-17] MEDS: POLYETHYLENE GLYCOL POWDER 17 GM PACK PO SCH (12:28)
[2021-02-17] MEDS: SEVELAMER CARBONATE 800 MG TABLET PO SCH ×3 (12:29→20:35)
[2021-02-17] MEDS: PANTOPRAZOLE 40 MG TABLET PO SCH ×2 (12:29→20:35)
[2021-02-17] MEDS: ALBUTEROL 2.5 MG/3 ML NEB RESP TX SCH (12:30)
[2021-02-17 14:26] LABS: M. Tuberculosis PCR Result Negative (Negative); M. Tuberculosis PCR Source CSF
[2021-02-17] MEDS: VANCOMYCIN INJ 1,000 MG in SODIUM CHLORIDE 0.9% 250 ML IV SCH (16:12)
[2021-02-17] MEDS: ACYCLOVIR INJ 350 MG in SODIUM CHLORIDE 0.9% 100 ML IV SCH (18:31)
[2021-02-17] MEDS: QUEtiapine 25 MG TABLET PO SCH (20:35)
[2021-02-17] MEDS: HALOPERIDOL 5 MG/ML AMP IM PRN (22:04)
[2021-02-18] MEDS: ALBUTEROL/IPRATROPIUM 3 ML NEB RESP TX SCH ×4 (01:00→20:25)
[2021-02-18 05:48] LABS: Basophils % 0.2 % (0.0-0.8); Eosinophils # 0.1 10*3/uL (0.0-0.87); Hematocrit 28.7 VOL% (42.0-52.0); Hemoglobin 9.5 GM/DL (14.0-18.0); Immature Granulocytes % 0.3 %; Immature Granulocytes Absolute 0.03 #; Lymphocytes # 0.5 10*3/uL (1.4-4.0); Lymphocytes % 5.9 % (21.2-54.2); Mean Corpuscular HGB Conc 33.1 GM/DL (32-36); Mean Platelet Volume 9.5 FL (9.6-12.0); Neutrophils % 85.6 % (38.7-73.9); Platelet Count 111 T/CUMM (130-400); Red Blood Count 3.19 MC/CUMM (3.8-5.5); White Blood Count 8.7 T/CUMM (4-12)
[2021-02-18] MEDS: INSULIN LISPRO 100 UNIT/ML SUBCUT SCH ×4 (07:30→20:48)
[2021-02-18] MEDS: POLYETHYLENE GLYCOL POWDER 17 GM PACK PO SCH (09:31)
[2021-02-18] MEDS: SEVELAMER CARBONATE 800 MG TABLET PO SCH ×3 (09:32→17:41)
[2021-02-18] MEDS: MULTIVITAMIN (BEROCCA) TABLET PO SCH (09:32)
[2021-02-18] MEDS: predniSONE 10 MG TABLET PO SCH ×2 (09:32→20:48)
[2021-02-18] MEDS: DOCUSATE SODIUM 100 MG CAPSULE PO SCH ×2 (09:33→20:48)
[2021-02-18] MEDS: PANTOPRAZOLE 40 MG TABLET PO SCH ×2 (09:33→20:48)
[2021-02-18] MEDS: carvediloL 6.25 MG TABLET PO SCH ×2 (09:33→20:48)
[2021-02-18] MEDS: LORATADINE 10 MG TABLET PO SCH (09:33)
[2021-02-18] MEDS: levETIRAcetam 250 MG TABLET PO SCH (09:33)
[2021-02-18] MEDS: ENOXAPARIN 30 MG/0.3 ML SYRINGE SUBCUT SCH (09:34)
[2021-02-18] MEDS: cefTRIAXone 2,000 MG in SODIUM CHLORIDE 0.9% 100 ML IV SCH ×2 (09:48→20:46)
[2021-02-18] MEDS: ACYCLOVIR INJ 350 MG in SODIUM CHLORIDE 0.9% 100 ML IV SCH (17:00)
[2021-02-18] MEDS: HALOPERIDOL 1 MG TABLET PO SCH (20:48)
[2021-02-19] MEDS: ALBUTEROL/IPRATROPIUM 3 ML NEB RESP TX SCH ×4 (00:13→20:02)
[2021-02-19] MEDS: INSULIN LISPRO 100 UNIT/ML SUBCUT SCH ×4 (08:05→20:06)
[2021-02-19] MEDS: predniSONE 10 MG TABLET PO SCH ×2 (08:56→22:46)
[2021-02-19] MEDS: SEVELAMER CARBONATE 800 MG TABLET PO SCH ×3 (08:56→17:39)
[2021-02-19] MEDS: PANTOPRAZOLE 40 MG TABLET PO SCH ×2 (08:56→22:46)
[2021-02-19] MEDS: POLYETHYLENE GLYCOL POWDER 17 GM PACK PO SCH (08:56)
[2021-02-19] MEDS: levETIRAcetam 250 MG TABLET PO SCH (08:56)
[2021-02-19] MEDS: DOCUSATE SODIUM 100 MG CAPSULE PO SCH ×2 (08:56→22:45)
[2021-02-19] MEDS: MULTIVITAMIN (BEROCCA) TABLET PO SCH (08:57)
[2021-02-19] MEDS: carvediloL 6.25 MG TABLET PO SCH ×2 (08:57→22:46)
[2021-02-19] MEDS: ENOXAPARIN 30 MG/0.3 ML SYRINGE SUBCUT SCH (08:57)
[2021-02-19] MEDS: LORATADINE 10 MG TABLET PO SCH (08:57)
[2021-02-19] MEDS: HALOPERIDOL 1 MG TABLET PO SCH ×2 (08:59→22:46)
[2021-02-19] MEDS ORDERED: FUROSEMIDE 40 MG/4 ML VIAL IV SCH (09:00)
[2021-02-19] MEDS: cefTRIAXone 2,000 MG in SODIUM CHLORIDE 0.9% 100 ML IV SCH ×2 (09:01→20:59)
[2021-02-19] MEDS ORDERED: diphenhydrAMINE 50 MG/1 ML VIAL IV PRN ×2 (15:24→18:24)
[2021-02-19] MEDS: ACYCLOVIR INJ 350 MG in SODIUM CHLORIDE 0.9% 100 ML IV SCH (17:09)
[2021-02-20] MEDS: ALBUTEROL/IPRATROPIUM 3 ML NEB RESP TX SCH ×3 (01:02→12:38)
[2021-02-20 05:46] LABS: Calcium 8.6 MG/DL (8.5-10.1); Potassium 4.3 MMOL/L (3.5-5.1)
[2021-02-20 08:13] VITALS: BP 118/68
[2021-02-20] MEDS: INSULIN LISPRO 100 UNIT/ML SUBCUT SCH ×4 (08:19→15:31)
[2021-02-20] MEDS: DEXTROSE 50% 25 GM/50 ML SYRINGE IV PRN ×2 (08:23→16:45)
[2021-02-20] MEDS: cefTRIAXone 2,000 MG in SODIUM CHLORIDE 0.9% 100 ML IV SCH (08:23)
[2021-02-20] MEDS: ENOXAPARIN 30 MG/0.3 ML SYRINGE SUBCUT SCH (08:24)
[2021-02-20] MEDS: LORATADINE 10 MG TABLET PO SCH (10:34)
[2021-02-20] MEDS: carvediloL 6.25 MG TABLET PO SCH (10:34)
[2021-02-20] MEDS: MULTIVITAMIN (BEROCCA) TABLET PO SCH (10:34)
[2021-02-20] MEDS: SEVELAMER CARBONATE 800 MG TABLET PO SCH ×3 (10:34→16:11)
[2021-02-20] MEDS: DOCUSATE SODIUM 100 MG CAPSULE PO SCH (10:34)
[2021-02-20] MEDS: predniSONE 10 MG TABLET PO SCH (10:35)
[2021-02-20] MEDS: POLYETHYLENE GLYCOL POWDER 17 GM PACK PO SCH (10:35)
[2021-02-20] MEDS: PANTOPRAZOLE 40 MG TABLET PO SCH (10:35)
[2021-02-20] MEDS: levETIRAcetam 250 MG TABLET PO SCH (10:35)
[2021-02-20] MEDS: HALOPERIDOL 1 MG TABLET PO SCH (10:35)
[2021-02-20] MEDS ORDERED: DEXTROSE 5% 1,000 ML IV SCH (11:00)
[2021-02-20 11:17] LABS: Basophils % 0.5 % (0.0-0.8); Eosinophils # 0.4 10*3/uL (0.0-0.87); Eosinophils % 4.6 % (0.00-10.9); Hematocrit 27.7 VOL% (42.0-52.0); Hemoglobin 9.1 GM/DL (14.0-18.0); Immature Granulocytes % 0.3 %; Immature Granulocytes Absolute 0.03 #; Lymphocytes # 0.7 10*3/uL (1.4-4.0); Lymphocytes % 8.1 % (21.2-54.2); Mean Corpuscular HGB Conc 32.9 GM/DL (32-36); Mean Corpuscular Volume 91.4 FL (87-102); Mean Platelet Volume 10.2 FL (9.6-12.0); Monocytes % 8.5 % (1.7-12.7); Platelet Count 110 T/CUMM (130-400); Red Blood Count 3.03 MC/CUMM (3.8-5.5); Red Cell Distribution Width 16.3 % (9.3-17.3); White Blood Count 8.7 T/CUMM (4-12)
[2021-02-20] MEDS: VANCOMYCIN INJ 1,000 MG in SODIUM CHLORIDE 0.9% 250 ML IV SCH (16:11)
[2021-02-23 16:16] LABS: Herpesvirus 7 IgM Ab by IFA <1:20
== END 2021-02-20 17:00 | disposition hospice, home (50) | DRG 97 ==
LOC: SUATTDRO 20:37 → N.TELES 20:37 → N.ICU 02-20 09:58
PROVIDERS: ADMIT Internal Medicine; ATTEND Internal Medicine